=== PATIENT | female | born 1930 | race Asian ===

== ENCOUNTER 2019-12-06 16:43 | Inpatient (IN) | payer OTHER, MEDICAID ==
[~2019-12-06] VITALS: Ht 162.6 cm; Wt 49.4 kg
[2019-12-06 16:45] VITALS: BP 160/84
[2019-12-06 17:50] LABS: HEMATOCRIT 36.2 % (37.0-47.0); HEMOGLOBIN 11.6 G/DL (12.0-16.0); MEAN CORPUSCULAR VOLUME 95 FL (80-99); PLATELET COUNT 183 K/UL (150-450); WHITE BLOOD COUNT 11.6 K/UL (4.8-10.8)
--- NOTE | 2019-12-06 18:08 | Emergency Room Report ---
History of Present Illness General Chief Complaint: Fever Source: Medical Record Present Illness HPI Patient presents by paramedics for reports of fever Patient was brought in by paramedics It was reported the patient was picked up from a business office There was no reports of vomiting or diarrhea patient herself has underlying dementia History from the patient is unable to be obtained we are attempting to Discussed regarding patient's case with family Unknown regarding cough patient was documented to have a fever here Allergies: Coded Allergies: PENICILLINS (Unverified Allergy, Unknown, 12/06/19) COVID-19 Screening Contact w/high risk pt: No Recent Travel to affected area: No Experienced COVID-19 symptoms?: Yes COVID-19 symptoms experienced: Fever (T>100.4F or >38C) COVID-19 Testing performed RATE CLERK: No Patient History Past Medical History: see triage record Reviewed Nursing Documentation: PMH: Agreed; PSxH: Agreed Review of Systems All Other Systems: negative except mentioned in HPI Physical Exam Vital Signs Date Time Temp Pulse Resp B/P (MAP) Pulse Ox O2 Delivery O2 Flow Rate FiO2 12/06/19 16:38 100.2 100 22 160/84 (109) 88 Room Air Sp02 EP Interpretation: reviewed, abnormal - 88% which is a low interpretation. On 2 L the patient is saturating at 98% which is normal General Appearance: well appearing, no apparent distress Head: normocephalic, atraumatic Eyes: bilateral eye PERRL, bilateral eye EOMI ENT: EOM grossly intact Neck: supple Respiratory: no retraction, no accessory muscle use, crackles - Both lower lobes Cardiovascular #1: regular rate, rhythm Gastrointestinal: non tender, soft Genitourinary: no CVA tenderness Musculoskeletal: normal inspection Neurologic: alert Skin: no rash Lymphatic: no adenopathy Medical Decision Making Diagnostic Impression: Primary Impression: Fever Additional Impressions: Suspected COVID-19 virus infection UTI (urinary tract infection) ER Course Patient is a fairly complex patient with multiple differential to consideration including but not limited to cardiac cardiopulmonary , infectious such as covid- 19 , UTI , abdominal process and vascular emergencies Entertained Patient's urine sample does show significant bacteria x-ray also shows bilateral bibasilar infiltrates Patient provided with IV hydration and antibiotics and requires further inpatient care Labs Test 12/06/19 17:12 12/06/19 17:31 White Blood Count 11.6 K/UL (4.8-10.8) Red Blood Count 3.80 M/UL (4.20-5.40) Hemoglobin 11.6 G/DL (12.0-16.0) Hematocrit 36.2 % (37.0-47.0) Mean Corpuscular Volume 95 FL (80-99) Mean Corpuscular Hemoglobin 30.4 PG (27.0-31.0) Mean Corpuscular Hemoglobin Concent 32.0 G/DL (32.0-36.0) Red Cell Distribution Width 14.0 % (11.6-14.8) Platelet Count 183 K/UL (150-450) Mean Platelet Volume 7.9 FL (6.5-10.1) Neutrophils (%) (Auto) % (45.0-75.0) Lymphocytes (%) (Auto) % (20.0-45.0) Monocytes (%) (Auto) % (1.0-10.0) Eosinophils (%) (Auto) % (0.0-3.0) Basophils (%) (Auto) % (0.0-2.0) Differential Total Cells Counted 100 Neutrophils % (Manual) 88 % (45-75) Lymphocytes % (Manual) 9 % (20-45) Monocytes % (Manual) 2 % (1-10) Eosinophils % (Manual) 1 % (0-3) Basophils % (Manual) 0 % (0-2) Band Neutrophils 0 % (0-8) Platelet Estimate Adequate Platelet Morphology Normal Red Blood Cell Morphology Normal Sodium Level 134 MMOL/L (136-145) Potassium Level 4.1 MMOL/L (3.5-5.1) Chloride Level 98 MMOL/L (98-107) Carbon Dioxide Level 24 MMOL/L (21-32) Anion Gap 12 mmol/L (5-15) Blood Urea Nitrogen 30 mg/dL (7-18) Creatinine 1.5 MG/DL (0.55-1.30) Estimat Glomerular Filtration Rate 32.7 mL/min (>60) Glucose Level 138 MG/DL (74-106) Lactic Acid Level 1.00 mmol/L (0.4-2.0) Calcium Level 8.8 MG/DL (8.5-10.1) Total Bilirubin 0.7 MG/DL (0.2-1.0) Aspartate Amino Transf (AST/SGOT) 17 U/L (15-37) Alanine Aminotransferase (ALT/SGPT) 9 U/L (12-78) Alkaline Phosphatase 79 U/L (46-116) Total Creatine Kinase 58 U/L (26-308) Creatine Kinase MB 0.7 NG/ML (0.0-3.6) Creatine Kinase MB Relative Index 1.2 Troponin I 0.004 ng/mL (0.000-0.056) Pro-B-Type Natriuretic Peptide 750 pg/mL (0-125) Total Protein 7.0 G/DL (6.4-8.2) Albumin 3.0 G/DL (3.4-5.0) Globulin 4.0 g/dL Albumin/Globulin Ratio 0.8 (1.0-2.7) Lipase 88 U/L (73-393) Urine Color Pale yellow Urine Appearance Slightly cloudy Urine pH 6 (4.5-8.0) Urine Specific [place] 1.010 (1.005-1.035) Urine Protein 3+ (NEGATIVE) Urine Glucose (UA) Negative (NEGATIVE) Urine Ketones Negative (NEGATIVE) Urine Blood 3+ (NEGATIVE) Urine Nitrite Negative (NEGATIVE) Urine Bilirubin Negative (NEGATIVE) Urine Urobilinogen Normal MG/DL (0.0-1.0) Urine Leukocyte Esterase 3+ (NEGATIVE) Urine RBC 30-40 /HPF (0 - 2) Urine WBC 60-80 /HPF (0 - 2) Urine Squamous Epithelial Cells Moderate /LPF (NONE/OCC) Urine Bacteria Many /HPF (NONE) Rhythm Strip Diag. Results EP Interpretation: yes Rate: 77 Rhythm: NSR, no PVC's, no ectopy Chest X-Ray Diagnostic Results Chest X-Ray Diagnostic Results : Chest X-Ray Ordered: Yes # of Views/Limited/Complete: 1 View Indication: Chest Pain EP Interpretation: Yes Interpretation: no effusion, no pneumothorax, other - Bilateral bibasilar atelectasis Impression: Other - Bilateral bibasilar atelectasis infiltrate Electronically Signed by: Melissa Yoon DO Last Vital Signs Date Time Temp Pulse Resp B/P (MAP) Pulse Ox O2 Delivery O2 Flow Rate FiO2 12/06/19 16:45 100.2 100 22 160/84 88 Room Air Status: improved Disposition: ADMITTED INPATIENT Condition: Serious Referrals: NON PHYSICIAN (PCP) Melissa Yoon DO Dec 06, 2019 18:08
[2019-12-06 18:21] LABS: ANION GAP 12 mmol/L (5-15); BLOOD UREA NITROGEN 30 mg/dL (7-18); CALCIUM 8.8 MG/DL (8.5-10.1); CARBON DIOXIDE 24 MMOL/L (21-32); CHLORIDE 98 MMOL/L (98-107); CREATININE 1.5 MG/DL (0.55-1.30); POTASSIUM 4.1 MMOL/L (3.5-5.1); SODIUM 134 MMOL/L (136-145)
[2019-12-06 18:34] LABS: ALANINE AMINOTRANSFERASE 9 U/L (12-78); ALBUMIN/GLOBULIN RATIO 0.8 (1.0-2.7); ALKALINE PHOSPHATASE 79 U/L (46-116); ASPARTATE AMINO TRANSFERASE 17 U/L (15-37); BILIRUBIN,TOTAL 0.7 MG/DL (0.2-1.0); CKMB 0.7 NG/ML (0.0-3.6); CREATINE KINASE 58 U/L (26-308)
[2019-12-06 18:47] LABS: APPEARANCE,URINE SLIGHTLY CLOUDY; BILIRUBIN, URINE NEGATIVE (NEGATIVE); COLOR,URINE PALE YELLOW; GLUCOSE, URINE (UA) NEGATIVE (NEGATIVE); KETONES,URINE NEGATIVE (NEGATIVE); LEUKOCYTE ESTERASE ,URINE 3+ (NEGATIVE); NITRITE,URINE NEGATIVE (NEGATIVE); PH,URINE 6 (4.5-8.0); PROTEIN,URINE 3+ (NEGATIVE); UROBILINOGEN,URINE NORMAL MG/DL (0.0-1.0)
[2019-12-06] MEDS ORDERED: DOCUSATE SODIU100 MG ORAL (19:14)
[2019-12-06] MEDS ORDERED: HYDROXYZINE HCL10 M1 PO (19:14)
[2019-12-06] MEDS ORDERED: IBUPROFEN200 MG ORAL (19:14)
[2019-12-06] MEDS ORDERED: LYRICA75 M1 ORAL (19:14)
[2019-12-06] MEDS ORDERED: DONEPEZIL HCL5 M2 ORAL (19:14)
[2019-12-06] MEDS ORDERED: ALPRAZOLAM1 MG ORAL (19:14)
[2019-12-06] MEDS ORDERED: LOSARTAN POTASS25 MG ORAL (19:14)
[2019-12-06 19:45] VITALS: BP 130/61
[2019-12-06 21:00] VITALS: BP 144/67
[2019-12-06] MEDS: Aztreonam Inj 0.5 GM in D5W 55 ML IVPB SCH (23:18)
[2019-12-07] VITALS: BP 166/83
[2019-12-07 04:00] VITALS: BP 86/83
[2019-12-07] MEDS: Aztreonam Inj 0.5 GM in D5W 55 ML IVPB SCH ×3 (05:46→21:27)
[2019-12-07 06:26] LABS: HEMATOCRIT 36.6 % (37.0-47.0); HEMOGLOBIN 11.5 G/DL (12.0-16.0); MEAN CORPUSCULAR VOLUME 97 FL (80-99); PLATELET COUNT 191 K/UL (150-450); RED BLOOD COUNT 3.78 M/UL (4.20-5.40); RED CELL DISTRIBUTION WIDTH 13.3 % (11.6-14.8); WHITE BLOOD COUNT 13.2 K/UL (4.8-10.8)
[2019-12-07 07:02] LABS: ALANINE AMINOTRANSFERASE 7 U/L (12-78); ALBUMIN/GLOBULIN RATIO 0.7 (1.0-2.7); ALKALINE PHOSPHATASE 71 U/L (46-116); ANION GAP 9 mmol/L (5-15); ASPARTATE AMINO TRANSFERASE 22 U/L (15-37); BILIRUBIN,TOTAL 0.8 MG/DL (0.2-1.0); BLOOD UREA NITROGEN 32 mg/dL (7-18); CALCIUM 8.6 MG/DL (8.5-10.1); CARBON DIOXIDE 27 MMOL/L (21-32); CHLORIDE 100 MMOL/L (98-107); CREATININE 1.7 MG/DL (0.55-1.30); SODIUM 136 MMOL/L (136-145)
[2019-12-07 08:00] VITALS: BP 154/86
[2019-12-07] MEDS: Donepezil 5mg Tab ORAL SCH (08:44)
[2019-12-07] MEDS: Docusate 250mg cap ORAL SCH ×3 (08:44→19:08)
--- NOTE | 2019-12-07 10:21 | Diagnostic Imaging Report ---
Procedure: XRAY Chest 1v Reason for study: Chest pain. Comparison films: None. FINDINGS: A single one view chest is obtained. Vascularity is normal. There are bibasilar mild infiltrates. Cardiomegaly and tortuous aorta noted . Bilateral small effusions demonstrated. The bony thorax appear unremarkable. IMPRESSION: Bibasilar infiltrates and small effusions.
[2019-12-07 12:00] VITALS: BP 142/81
--- NOTE | 2019-12-07 13:15 | Consultation ---
DATE OF CONSULTATION: 12/07/2019 PULMONARY CONSULTATION CONSULTING PHYSICIAN: Duc Beltran MD. HISTORY OF PRESENT ILLNESS: This is an 89-year-old female who was brought to the hospital with fever. The patient was brought in by paramedics. The patient has dementia and is unable to provide any further history. The patient was reported having cough and was also febrile on arrival to the emergency room. In the last 12 hours here, T-maxis 99.8. She was transiently hypotensive, but currently is normotensive. Her laboratory testing has shown leukocytosis with anemia, left shift and a creatinine of 1.7. Her urinalysis shows pyuria as well. PAST MEDICAL HISTORY: Notable for dementia. PAST SURGICAL HISTORY: Not known. REVIEW OF SYSTEMS: Unreliable. PHYSICAL EXAMINATION: GENERAL: Reveals an elderly female. VITAL SIGNS: Blood pressure 160/80, heart rate is 100, respirations are 18. O2 saturation 98% on 2 liters oxygen. T-max 100.2 noted. HEENT: Unremarkable. CHEST: Shows clear breath sounds bilaterally. ABDOMEN: Soft. EXTREMITIES: There is no edema. LABORATORY DATA: Lab testing discussed above. DIAGNOSTIC STUDIES: X-ray chest per report shows bilaterally with some atelectatic changes in the right base and a suspicion of diaphragmatic plaques. IMPRESSION: 1. UTI. 2. Fever. 3. Abnormal chest x-ray. DISCUSSION: Admit to the hospital. Broad-spectrum antibiotics. IV fluid hydration. Await COVID-19 serology. We will follow carefully. Duc Beltran M.D. DR: ANA JOB#: [id number] CC:
[2019-12-07 16:00] VITALS: BP 138/79
[2019-12-07] MEDS: ALPRAZolam 0.5mg tab ORAL SCH (19:08)
[2019-12-07 20:00] VITALS: BP 150/74
[2019-12-07] MEDS: Lyrica 75mg cap ORAL SCH (21:26)
[2019-12-07] MEDS: Losartan 25mg tab ORAL SCH (21:27)
--- NOTE | 2019-12-07 23:15 | Consultation ---
DATE OF CONSULTATION: 12/07/2019 INFECTIOUS DISEASE CONSULTATION CONSULTING PHYSICIAN: Sanju Miranda MD. PRIMARY ATTENDING: Melissa Briscoe MD. REASON FOR CONSULTATION: UTI. HISTORY OF PRESENT ILLNESS: This is an 89-year-old patient female admitted yesterday from home complaining of low-grade fever with temperature of 100.2 in ER, also has borderline leukocytosis with WBC count of 11.6 that increased today to 13.2. The patient has no complaints. She has also dementia and hypertension. ALLERGIES: To penicillin. MEDICATIONS: Getting dose of Levaquin in ER, getting Cozaar, Lyrica, alprazolam, Colace, Aricept, ibuprofen, hydroxyzine, and Azactam. SOCIAL HISTORY: . [place] in origin. No history of alcohol, drug abuse or smoking. REVIEW OF SYSTEMS: The patient has no complaints. PHYSICAL EXAMINATION: VITAL SIGNS: Temperature 97.7, pulse 86 and blood pressure is 142/81. GENERAL APPEARANCE: In no acute distress. HEAD AND NECK: [place] conjunctivae. HEART: Normal rate. LUNGS: Clear. ABDOMEN: Soft, nontender. EXTREMITIES: No edema. NEUROLOGIC: Awake and alert. LABORATORY DATA: WBC 13.2, hemoglobin 11.5, hematocrit 36.6, and platelets 191. Sodium 136, potassium 4, chloride 100, bicarb 27, BUN 32, creatinine 1.7, glucose is 126. UA showed WBC of 68, RBC of 30 to 40, leukocyte esterase 2+, protein 2+. Chest x-ray showed right basilar infiltrate and effusion. IMPRESSION: 1. Pyuria, likely UTI. 2. Abnormal chest x-ray with infiltrate, COVID-19 test was negative. 3. Penicillin allergy history. 4. Acute renal failure. 5. Hypertension. RECOMMENDATION: Continue Azactam. Follow up the cultures. At the end of my exam, I thank Dr. Briscoe, for involving me in the care of this patient. Sanju Miranda M.D. DR: Cas JOB#: [id number] CC: JOSE A
[2019-12-08] VITALS: BP 158/88
--- NOTE | 2019-12-08 01:00 | History and Physical Report ---
DATE OF ADMISSION: 12/06/2019 HISTORY OF PRESENT ILLNESS: The patient has fever. She is admitted also to rule out COVID. The patient is somewhat a poor historian. She speaks Polish. History is obtained via a Polish-speaking nurse. The patient has had fever, weakness, is admitted to rule out COVID and also dizzy for the past 2 to 3 days. The patient denies shortness of breath. Denies nausea, vomiting, or diarrhea. Denies cough. Denies shortness of breath. PAST MEDICAL HISTORY: Organic brain syndrome, hypertension, , constipation, chronic pain syndrome, and anxiety. PAST SURGICAL HISTORY: Denies. FAMILY HISTORY: Noncontributory. SOCIAL HISTORY: Denies history of smoking. No history of alcohol or drugs. ALLERGIES: Penicillin. MEDICATIONS: Benazepril, docusate, Xanax, losartan, and Lyrica. FAMILY HISTORY: Noncontributory. REVIEW OF SYSTEMS: HEENT: Denies headaches. RESPIRATORY: Denies shortness of breath. Denies cough. CARDIOVASCULAR: Denies chest pain or orthopnea. GASTROINTESTINAL: Denies nausea, vomiting, or diarrhea. Feels weak. EXTREMITIES: Denies pain in lower extremities. Does have weakness. PHYSICAL EXAMINATION: VITAL SIGNS: Temperature is 97, pulse is 84, blood pressure 166/83. HEENT: PERRLA. NECK: Supple. LUNGS: Clear to auscultation. CARDIOVASCULAR: Regular rate and rhythm. No murmurs or extra sounds. GASTROINTESTINAL: Soft, nontender, nondistended. No hepatosplenomegaly. EXTREMITIES: No edema. Moves all four extremities. NEUROLOGIC: Sensory intact to light touch. Reflexes equal on both sides. Oriented to name only. LABORATORY DATA: WBC of 11.6, hemoglobin 11.6, platelets of 150. Sodium 134, potassium 4.1, BUN of 30, creatinine 1.5, glucose of 138. Troponin 0.004. ASSESSMENT AND PLAN: Sepsis and UTI. I have consulted Dr. Sanju Miranda and Dr. Duc Beltran to rule out COVID and antibiotics per Dr. Sanju Miranda. Melissa Briscoe M.D. DR: MESSI JOB#: [id number] CC:
[2019-12-08 04:00] VITALS: BP 152/76
[2019-12-08] MEDS: Aztreonam Inj 0.5 GM in D5W 55 ML IVPB SCH ×3 (05:41→21:27)
[2019-12-08 09:00] VITALS: BP 142/78
[2019-12-08] MEDS: Donepezil 5mg Tab ORAL SCH (09:55)
[2019-12-08] MEDS: Docusate 250mg cap ORAL SCH ×3 (09:55→17:32)
--- NOTE | 2019-12-08 10:12 | Pulmonology Progress Note ---
Subjective Interval Events: COVID 19 pcr negative Constitutional: Reports: no symptoms HEENT: Repors: no symptoms Respiratory: Reports: no symptoms Cardiovascular: Reports: no symptoms Gastrointestinal/Abdominal: Reports: no symptoms Allergies: Coded Allergies: PENICILLINS (Unverified Allergy, Unknown, 12/06/19) Objective Last 24 Hour Vital Signs Date Time Temp Pulse Resp B/P (MAP) Pulse Ox O2 Delivery O2 Flow Rate FiO2 12/08/19 09:00 98.4 83 20 142/78 (99) 96 12/08/19 04:00 98.2 87 21 152/76 (101) 95 12/08/19 00:00 98.6 99 21 158/88 (111) 96 12/07/19 21:27 150/74 12/07/19 21:00 Room Air 12/07/19 20:00 98.2 74 19 150/74 (99) 96 12/07/19 16:00 98.2 91 21 138/79 (98) 95 12/07/19 12:00 97.7 86 20 142/81 (101) 97 Intake and Output 12/07/19 12/08/19 19:00 07:00 Intake Total 855 ml 110 ml Balance 855 ml 110 ml Intake Oral 800 ml IV Total 55 ml 110 ml # Voids 4 3 # Bowel Movements 2 1 General Appearance: no acute distress HEENT: normocephalic Respiratory: chest wall non-tender, lungs clear Cardiovascular: normal peripheral pulses Abdomen: normal bowel sounds Microbiology Date/Time Source Procedure Growth Status 12/06/19 17:12 Blood Blood Culture - Preliminary NO GROWTH AFTER 24 HOURS Resulted 12/06/19 16:55 Blood Blood Culture - Preliminary NO GROWTH AFTER 24 HOURS Resulted 12/06/19 17:12 Nasopharynx Coronavirus COVID-19 PCR ([facility]) - Final Complete Current Medications Medications (Trade) Dose Ordered Sig/Corina Route PRN Reason Start Time Stop Time Status Last Admin Dose Admin Alprazolam (Xanax) 1 mg DAILY@1800 ORAL 12/07/19 18:00 12/14/19 17:59 12/07/19 19:08 Aztreonam 0.5 gm/ Dextrose 55 ml @ 110 mls/hr Q8HR IVPB 12/06/19 22:00 12/13/19 21:59 12/08/19 05:41 Docusate Sodium (Colace) 250 mg TID ORAL 12/07/19 09:00 01/06/20 08:59 12/08/19 09:55 Donepezil HCl (Aricept) 5 mg DAILY ORAL 12/07/19 09:00 01/06/20 08:59 12/08/19 09:55 Hydroxyzine HCl (Vistaril) 10 mg DAILY PRN ORAL Itching 12/06/19 22:45 01/05/20 22:44 Ibuprofen (Advil) 600 mg Q8HR ORAL 12/07/19 06:00 01/06/20 05:59 12/08/19 05:34 Losartan Potassium (Cozaar) 100 mg QHS ORAL 12/07/19 21:00 01/06/20 20:59 12/07/19 21:27 Pregabalin (Lyrica) 75 mg QHS ORAL 12/07/19 21:00 01/06/20 20:59 12/07/19 21:26 Assessment/Plan Assessment/Plan IMPRESSION: 1. UTI. 2. Fever. 3. Abnormal chest x-ray. DISCUSSION: Broad-spectrum antibiotics. IV fluid hydration. Has negative COVID-19 pcr I will follow carefully. Farhan Lozano Omar Syed MD Dec 08, 2019 10:12
[2019-12-08 12:00] VITALS: BP 137/71
--- NOTE | 2019-12-08 12:59 | Infectious Diseases Prog Note ---
Assessment/Plan Assessment/Plan IMPRESSION: 1. Pyuria, likely UTI. 2. Abnormal chest x-ray with infiltrate, COVID-19 test was negative. 3. Penicillin allergy history. 4. Acute renal failure. 5. Hypertension. RECOMMENDATION: Continue Azactam. Follow up the cultures. Subjective ROS Limited/Unobtainable: Yes Constitutional: Reports: no symptoms Respiratory: Reports: no symptoms Gastrointestinal/Abdominal: Reports: no symptoms Genitourinary: Reports: no symptoms Allergies: Coded Allergies: PENICILLINS (Unverified Allergy, Unknown, 12/06/19) Objective Vital Signs Last 24 Hour Vital Signs Date Time Temp Pulse Resp B/P (MAP) Pulse Ox O2 Delivery O2 Flow Rate FiO2 12/08/19 12:00 98.3 87 19 137/71 (93) 97 12/08/19 09:00 Room Air 12/08/19 09:00 98.4 83 20 142/78 (99) 96 12/08/19 04:00 98.2 87 21 152/76 (101) 95 12/08/19 00:00 98.6 99 21 158/88 (111) 96 12/07/19 21:27 150/74 12/07/19 21:00 Room Air 12/07/19 20:00 98.2 74 19 150/74 (99) 96 12/07/19 16:00 98.2 91 21 138/79 (98) 95 Height (Feet): 5 Height (Inches): 4.00 Weight (Pounds): 109 HEENT: mucous membranes moist Respiratory/Chest: lungs clear Cardiovascular: normal rate Abdomen: soft, non tender Extremities: no edema Neurologic/Psychiatric: alert, responsive, other - ambulatory in room Microbiology Date/Time Source Procedure Growth Status 12/06/19 17:12 Blood Blood Culture - Preliminary NO GROWTH AFTER 24 HOURS Resulted 12/06/19 16:55 Blood Blood Culture - Preliminary NO GROWTH AFTER 24 HOURS Resulted 12/06/19 17:12 Nasopharynx Coronavirus COVID-19 PCR ([facility]) - Final Complete Current Medications Medications (Trade) Dose Ordered Sig/Corina Route PRN Reason Start Time Stop Time Status Last Admin Dose Admin Alprazolam (Xanax) 1 mg DAILY@1800 ORAL 12/07/19 18:00 12/14/19 17:59 12/07/19 19:08 Aztreonam 0.5 gm/ Dextrose 55 ml @ 110 mls/hr Q8HR IVPB 12/06/19 22:00 12/13/19 21:59 12/08/19 05:41 Docusate Sodium (Colace) 250 mg TID ORAL 12/07/19 09:00 01/06/20 08:59 12/08/19 12:52 Donepezil HCl (Aricept) 5 mg DAILY ORAL 12/07/19 09:00 01/06/20 08:59 12/08/19 09:55 Hydroxyzine HCl (Vistaril) 10 mg DAILY PRN ORAL Itching 12/06/19 22:45 01/05/20 22:44 Ibuprofen (Advil) 600 mg Q8HR ORAL 12/07/19 06:00 01/06/20 05:59 12/08/19 05:34 Losartan Potassium (Cozaar) 100 mg QHS ORAL 12/07/19 21:00 01/06/20 20:59 12/07/19 21:27 Pregabalin (Lyrica) 75 mg QHS ORAL 12/07/19 21:00 01/06/20 20:59 12/07/19 21:26 Sanju Miranda MD Dec 08, 2019 12:59
[2019-12-08 15:52] VITALS: BP 131/69
[2019-12-08] MEDS: ALPRAZolam 0.5mg tab ORAL SCH (18:28)
[2019-12-08 20:00] VITALS: BP 149/83
[2019-12-08] MEDS: Losartan 25mg tab ORAL SCH (20:37)
[2019-12-08] MEDS: Lyrica 75mg cap ORAL SCH (20:37)
--- NOTE | 2019-12-08 21:43 | General Progress Note ---
Assessment/Plan Problem List: (1) Fever ICD Codes: R50.9 - Fever, unspecified SNOMED: [id number] Status: progressing Assessment/Plan: afebrile ro covid sepsis r/o uti obs abx per id Subjective ROS Limited/Unobtainable: Yes Allergies: Coded Allergies: PENICILLINS (Unverified Allergy, Unknown, 12/06/19) Objective Last 24 Hour Vital Signs Date Time Temp Pulse Resp B/P (MAP) Pulse Ox O2 Delivery O2 Flow Rate FiO2 12/08/19 21:07 98.0 12/08/19 20:37 149/83 12/08/19 20:00 97.9 78 19 149/83 (105) 96 12/08/19 15:52 98.0 91 20 131/69 (89) 98 12/08/19 12:00 98.3 87 19 137/71 (93) 97 12/08/19 09:00 Room Air 12/08/19 09:00 98.4 83 20 142/78 (99) 96 12/08/19 04:00 98.2 87 21 152/76 (101) 95 12/08/19 00:00 98.6 99 21 158/88 (111) 96 Intake and Output 12/07/19 12/08/19 19:00 07:00 Intake Total 855 ml 110 ml Balance 855 ml 110 ml Intake Oral 800 ml IV Total 55 ml 110 ml # Voids 4 3 # Bowel Movements 2 1 Height (Feet): 5 Height (Inches): 4.00 Weight (Pounds): 109 Melissa Briscoe MD Dec 08, 2019 21:43
[2019-12-09] VITALS: BP 121/84
[2019-12-09 04:00] VITALS: BP 131/83
[2019-12-09 05:19] LABS: BASOPHILS % (AUTO) 1.2 % (0.0-2.0); EOSINOPHILS % (AUTO) 3.1 % (0.0-3.0); HEMATOCRIT 36.3 % (37.0-47.0); HEMOGLOBIN 11.6 G/DL (12.0-16.0); LYMPHOCYTES % (AUTO) 17.3 % (20.0-45.0); MEAN CORPUSCULAR VOLUME 95 FL (80-99); MONOCYTES % (AUTO) 10.2 % (1.0-10.0); NEUTROPHILS % (AUTO) 68.3 % (45.0-75.0); PLATELET COUNT 196 K/UL (150-450); RED BLOOD COUNT 3.81 M/UL (4.20-5.40); RED CELL DISTRIBUTION WIDTH 13.7 % (11.6-14.8); WHITE BLOOD COUNT 5.3 K/UL (4.8-10.8)
[2019-12-09] MEDS: Aztreonam Inj 0.5 GM in D5W 55 ML IVPB SCH (05:20)
[2019-12-09 08:00] VITALS: BP 154/68
[2019-12-09] MEDS: Donepezil 5mg Tab ORAL SCH (08:03)
[2019-12-09] MEDS: Docusate 250mg cap ORAL SCH ×2 (08:03→13:24)
--- NOTE | 2019-12-09 10:08 | Infectious Diseases Prog Note ---
Assessment/Plan Assessment/Plan IMPRESSION: 1. Pyuria, likely UTI. 2. Abnormal chest x-ray with infiltrate, COVID-19 test was negative. 3. Penicillin allergy history. 4. Acute renal failure. 5. Hypertension. RECOMMENDATION: Discontinue Azactam. Levaquin 750 mg X 1 agree with discharge Subjective ROS Limited/Unobtainable: Yes Constitutional: Reports: no symptoms Respiratory: Reports: no symptoms Gastrointestinal/Abdominal: Reports: no symptoms Genitourinary: Reports: no symptoms Allergies: Coded Allergies: PENICILLINS (Unverified Allergy, Unknown, 12/06/19) Objective Vital Signs Last 24 Hour Vital Signs Date Time Temp Pulse Resp B/P (MAP) Pulse Ox O2 Delivery O2 Flow Rate FiO2 12/09/19 08:00 97.3 77 17 154/68 (96) 95 12/09/19 05:54 98.3 12/09/19 04:00 98.3 80 20 131/83 (99) 96 12/09/19 00:00 97.6 76 19 121/84 (96) 96 12/08/19 21:07 98.0 12/08/19 21:00 Room Air 12/08/19 20:37 149/83 12/08/19 20:00 97.9 78 19 149/83 (105) 96 12/08/19 15:52 98.0 91 20 131/69 (89) 98 12/08/19 12:00 98.3 87 19 137/71 (93) 97 General Appearance: no acute distress HEENT: mucous membranes moist Respiratory/Chest: lungs clear Cardiovascular: normal rate Abdomen: soft, non tender Extremities: no edema Neurologic/Psychiatric: alert, oriented x 3, responsive Microbiology Date/Time Source Procedure Growth Status 12/06/19 17:12 Blood Blood Culture - Preliminary NO GROWTH AFTER 48 HOURS Resulted 12/06/19 16:55 Blood Blood Culture - Preliminary NO GROWTH AFTER 48 HOURS Resulted 12/06/19 17:12 Nasopharynx Coronavirus COVID-19 PCR ([facility]) - Final Complete Laboratory Tests Test 12/09/19 05:05 White Blood Count 5.3 K/UL (4.8-10.8) Red Blood Count 3.81 M/UL (4.20-5.40) L Hemoglobin 11.6 G/DL (12.0-16.0) L Hematocrit 36.3 % (37.0-47.0) L Mean Corpuscular Volume 95 FL (80-99) Mean Corpuscular Hemoglobin 30.3 PG (27.0-31.0) Mean Corpuscular Hemoglobin Concent 31.8 G/DL (32.0-36.0) L Red Cell Distribution Width 13.7 % (11.6-14.8) Platelet Count 196 K/UL (150-450) Mean Platelet Volume 8.5 FL (6.5-10.1) Neutrophils (%) (Auto) 68.3 % (45.0-75.0) Lymphocytes (%) (Auto) 17.3 % (20.0-45.0) L Monocytes (%) (Auto) 10.2 % (1.0-10.0) H Eosinophils (%) (Auto) 3.1 % (0.0-3.0) H Basophils (%) (Auto) 1.2 % (0.0-2.0) Current Medications Medications (Trade) Dose Ordered Sig/Corina Route PRN Reason Start Time Stop Time Status Last Admin Dose Admin Alprazolam (Xanax) 1 mg DAILY@1800 ORAL 12/07/19 18:00 12/14/19 17:59 12/08/19 18:28 Aztreonam 0.5 gm/ Dextrose 55 ml @ 110 mls/hr Q8HR IVPB 12/06/19 22:00 12/13/19 21:59 12/09/19 05:20 Docusate Sodium (Colace) 250 mg TID ORAL 12/07/19 09:00 01/06/20 08:59 12/09/19 08:03 Donepezil HCl (Aricept) 5 mg DAILY ORAL 12/07/19 09:00 01/06/20 08:59 12/09/19 08:03 Hydroxyzine HCl (Vistaril) 10 mg DAILY PRN ORAL Itching 12/06/19 22:45 01/05/20 22:44 Ibuprofen (Advil) 600 mg Q8HR ORAL 12/07/19 06:00 01/06/20 05:59 12/09/19 05:24 Losartan Potassium (Cozaar) 100 mg QHS ORAL 12/07/19 21:00 01/06/20 20:59 12/08/19 20:37 Pregabalin (Lyrica) 75 mg QHS ORAL 12/07/19 21:00 01/06/20 20:59 12/08/19 20:37 Sanju Miranda MD Dec 09, 2019 10:08
[2019-12-09] MEDS ORDERED: Levofloxacin 750mg tab ORAL SCH (10:15)
--- NOTE | 2019-12-09 10:25 | Pulmonology Progress Note ---
Subjective ROS Limited/Unobtainable: Yes Interval Events: COVID 19 pcr negative Constitutional: Reports: no symptoms HEENT: Repors: no symptoms Respiratory: Reports: no symptoms Cardiovascular: Reports: no symptoms Gastrointestinal/Abdominal: Reports: no symptoms Allergies: Coded Allergies: PENICILLINS (Unverified Allergy, Unknown, 12/06/19) Objective Last 24 Hour Vital Signs Date Time Temp Pulse Resp B/P (MAP) Pulse Ox O2 Delivery O2 Flow Rate FiO2 12/09/19 08:00 97.3 77 17 154/68 (96) 95 12/09/19 05:54 98.3 12/09/19 04:00 98.3 80 20 131/83 (99) 96 12/09/19 00:00 97.6 76 19 121/84 (96) 96 12/08/19 21:07 98.0 12/08/19 21:00 Room Air 12/08/19 20:37 149/83 12/08/19 20:00 97.9 78 19 149/83 (105) 96 12/08/19 15:52 98.0 91 20 131/69 (89) 98 12/08/19 12:00 98.3 87 19 137/71 (93) 97 Intake and Output 12/08/19 12/09/19 19:00 07:00 Intake Total 470 ml 765 ml Balance 470 ml 765 ml Intake Oral 360 ml 600 ml IV Total 110 ml 165 ml # Voids 3 General Appearance: no acute distress HEENT: normocephalic Respiratory: chest wall non-tender, lungs clear Cardiovascular: normal peripheral pulses Abdomen: normal bowel sounds Microbiology Date/Time Source Procedure Growth Status 12/06/19 17:12 Blood Blood Culture - Preliminary NO GROWTH AFTER 48 HOURS Resulted 12/06/19 16:55 Blood Blood Culture - Preliminary NO GROWTH AFTER 48 HOURS Resulted 12/06/19 17:12 Nasopharynx Coronavirus COVID-19 PCR ([facility]) - Final Complete Laboratory Tests 12/09/19 05:05: White Blood Count 5.3, Red Blood Count 3.81L, Hemoglobin 11.6L, Hematocrit 36.3L , Mean Corpuscular Volume 95, Mean Corpuscular Hemoglobin 30.3, Mean Corpuscular Hemoglobin Concent 31.8L, Red Cell Distribution Width 13.7, Platelet Count 196, Mean Platelet Volume 8.5, Neutrophils (%) (Auto) 68.3, Lymphocytes (%) (Auto) 17.3L, Monocytes (%) (Auto) 10.2H, Eosinophils (%) (Auto ) 3.1H, Basophils (%) (Auto) 1.2 Current Medications Medications (Trade) Dose Ordered Sig/Corina Route PRN Reason Start Time Stop Time Status Last Admin Dose Admin Alprazolam (Xanax) 1 mg DAILY@1800 ORAL 12/07/19 18:00 12/14/19 17:59 12/08/19 18:28 Docusate Sodium (Colace) 250 mg TID ORAL 12/07/19 09:00 01/06/20 08:59 12/09/19 08:03 Donepezil HCl (Aricept) 5 mg DAILY ORAL 12/07/19 09:00 01/06/20 08:59 12/09/19 08:03 Hydroxyzine HCl (Vistaril) 10 mg DAILY PRN ORAL Itching 12/06/19 22:45 01/05/20 22:44 Ibuprofen (Advil) 600 mg Q8HR ORAL 12/07/19 06:00 01/06/20 05:59 12/09/19 05:24 Levofloxacin (Levaquin) 750 mg ONCE ORAL 12/09/19 10:15 12/09/19 12:00 Losartan Potassium (Cozaar) 100 mg QHS ORAL 12/07/19 21:00 01/06/20 20:59 12/08/19 20:37 Pregabalin (Lyrica) 75 mg QHS ORAL 12/07/19 21:00 01/06/20 20:59 12/08/19 20:37 Assessment/Plan Assessment/Plan IMPRESSION: 1. UTI. 2. Fever. 3. Abnormal chest x-ray. DISCUSSION: Broad-spectrum antibiotics. IV fluid hydration. Has negative COVID-19 pcr CXR shows small bilateral effusions I will follow carefully. Farhan Lozano Omar Syed MD Dec 09, 2019 10:25
[2019-12-09 12:00] VITALS: BP 160/71
[2019-12-09 12:16] VITALS: BP 159/85
[2019-12-09] MEDS ORDERED: Losartan 50mg tab ORAL SCH (21:00)
--- NOTE | 2019-12-12 09:47 | Discharge Summary ---
Discharge Summary Discharge Summary _ DATE OF ADMISSION: 12/06/2019 DATE OF DISCHARGE: 12/09/2019 DISCHARGED BY: Dr. Briscoe REASON FOR ADMISSION: 89 years old female was brought by paramedics due to fever. No reports of vomiting or diarrhea. No cough. No chest pain. Upon evaluation patient was febrile with temperature 100.2 , blood pressure 160/ 84 ,borderline tachycardiac with heart rate 100 ,respiratory rate 22 . Patient initially was hypoxic , saturating only 88% on room air. Laboratory work-up revealed leukocytosis , stable electrolytes, BUN 30, creatinine 1.5. Lactic acid 1.0. Stable LFT. Troponin negative. Urinalysis revealed +3 protein, +3 leukocyte esterase ,pyuria and many bacteria. EKG revealed sinus rhythm , no acute ischemic changes . Chest x-ray revealed bibasilar infiltrate and small effusion. In emergency department patient was swabbed for COVID-19. Patient started on empiric antibiotics and admitted for further management. CONSULTANTS: piece worker Dr. Beltran ID specialist Dr. Sanju Tyjamie [facility] COURSE: Patient admitted to medical surgical floor. Patient started on antibiotic as per ID specialist recommendation. Urine culture revealed no evidence of growth, but UA was geossly positive for UTI, SARS COV2 by PCR was not was not detected. Blood cultures were negative. Leukocytosis was present for additional day and then resolved. Fevers resolved in 1 day. Supplemental oxygen was on board to keep pulse oximetry above 92% . Pulse oximetry remained stable on room air. No signs of respiratory distress. Blood pressure was managed with angiotensin receptor mariah and remained stable. Supportive care provided. Renal parameters and electrolytes were closely monitored nephrotoxic's were avoided . Patient will need further evaluation for renal function as outpatient, possibly chronic kidney disease. Patient clinically stabilized and was ready for discharge. FINAL DIAGNOSES: Possible sepsis Pyuria, likely UTI Suspected COVID-19- ruled out Renal failure Proteinuria Hypertension Fevers Abnormal chest x-ray DISCHARGE MEDICATIONS: See Medication Reconciliation list. DISCHARGE INSTRUCTIONS: Patient was discharged home. Outpatient follow-up with a primary care provider in 1 week. I have been assigned to dictate discharge summary for this account. I was not involved in the patient's management. Iman Mancia NP Dec 12, 2019 09:47
== END 2019-12-09 15:04 | disposition home or self-care (01) | DRG 690 ==
LOC: EDBD 16:43 → EMR 17:10 → 4E 18:50 → EDBEDREQ 19:09
DX: N39.0 Urinary tract infection, site not specified (principal); N17.9 Acute kidney failure, unspecified; Z88.0 Allergy status to penicillin; F09 Unspecified mental disorder due to known physiological condition; I10 Essential (primary) hypertension
CPT/HCPCS: 36415; 71045; 80053; 81003; 82550; 82553; 83605; 83690; 83880; 84484; 85007; 85025; 87040; 87086; 93005; 96365; 99285

== ENCOUNTER 2020-04-14 16:53 | Inpatient (IN) | payer OTHER, MEDICAID ==
[~2020-04-14] VITALS: Ht 152.4 cm; Wt 44.5 kg
[~2020-04-14 16:53] MED LIST: ALPRAZOLAM1 MG ORAL; DOCUSATE SODIU100 MG ORAL; DONEPEZIL HCL5 M2 ORAL; HYDROXYZINE HCL10 M1 PO; IBUPROFEN200 MG ORAL; LOSARTAN POTASS25 MG ORAL; LYRICA75 M1 ORAL
[2020-04-14] MEDS ORDERED: AUGMENTIN125 MG/52 ORAL (16:56)
[2020-04-14] MEDS ORDERED: FLAGYL250 MG ORAL (16:56)
[2020-04-14 17:00] VITALS: BP 238/85
[2020-04-14] MEDS ORDERED: Enalaprilat 2.5mg/2ml Inj IV ONE (17:15)
--- NOTE | 2020-04-14 17:43 | Diagnostic Imaging Report ---
EXAM: CT Head Without Intravenous Contrast CLINICAL HISTORY: H/A TECHNIQUE: Axial computed tomography images of the head/brain without intravenous contrast. CTDI is 53.4 mGy and DLP is 989.9 mGy-cm. One or more of the following dose reduction techniques were used: automated exposure control, adjustment of the mA and/or kV according to patient size, use of iterative reconstruction technique. COMPARISON: No relevant prior studies available. FINDINGS: Brain: No acute intracranial hemorrhage or cortical ischemia. Chronic small vessel ischemic changes. Ventricles: Unremarkable. Bones/joints: Unremarkable. No acute fracture. Soft tissues: Unremarkable. Sinuses: Unremarkable as visualized. Mastoid air cells: Unremarkable as visualized. IMPRESSION: No acute intracranial hemorrhage or skull fracture.
--- NOTE | 2020-04-14 18:05 | Emergency Room Report ---
History of Present Illness General Chief Complaint: General Complaint Source: Patient Present Illness HPI 89-year-old female presents for evaluation. Brought in by EMS from home. Stated that her blood pressure was high. Systolic greater than 200. Patient told EMS that she felt like she was going to . Denies any headache. Denies any chest pain or shortness of breath. Daughter states that patient was having increased urinary frequency today and was seen by the PMD who prescribed her some antibiotics for UTI. States that since then she appeared confused. States she was admitted here previously for similar episode. No other aggravating relieving factors. 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: No Patient History Past Medical History: HTN Past Surgical History: none Pertinent Family History: none Social History: Denies: smoking, alcohol use, drug use Last Menstrual Period: na Now: No Immunizations: UTD Reviewed Nursing Documentation: PMH: Agreed; PSxH: Agreed Nursing Documentation-PMH Past Medical History: No History, Except For Hx Hypertension: Yes Hx Dementia: Yes Review of Systems All Other Systems: negative except mentioned in HPI Physical Exam Vital Signs Date Time Temp Pulse Resp B/P (MAP) Pulse Ox O2 Delivery O2 Flow Rate FiO2 04/14/20 16:53 98.4 81 18 237/118 (157) 98 Room Air Sp02 EP Interpretation: reviewed, normal General Appearance: no apparent distress, alert, GCS 15, non-toxic Head: normocephalic, atraumatic Eyes: bilateral eye normal inspection, bilateral eye PERRL ENT: hearing grossly normal, normal pharynx, no angioedema, normal voice Neck: full range of motion, supple/symm/no masses Respiratory: chest non-tender, lungs clear, normal breath sounds, speaking full sentences Cardiovascular #1: regular rate, rhythm, no edema Cardiovascular #2: 2+ carotid (R), 2+ carotid (L), 2+ radial (R), 2+ radial (L), 2+ dorsalis pedis (R), 2+ dorsalis pedis (L) Gastrointestinal: normal bowel sounds, non tender, soft, non-distended, no guarding, no rebound Rectal: deferred Genitourinary: normal inspection, no CVA tenderness Musculoskeletal: back normal, normal range of motion, gait/station normal, non- tender Neurologic: alert, motor strength/tone normal, oriented x3, sensory intact, responsive, speech normal Psychiatric: judgement/insight normal, memory normal, mood/affect normal, no suicidal/homicidal ideation Reflexes: 3+ bicep (R), 3+ bicep (L), 3+ tricep (R), 3+ tricep (L), 3+ knee (R), 3+ knee (L) Lymphatic: no adenopathy Medical Decision Making Diagnostic Impression: Primary Impression: Hypertensive urgency EKG Diagnostic Results Troponin ordered: Yes Rate: normal Rhythm: NSR ST Segments: no acute changes Rhythm Strip Diag. Results EP Interpretation: yes Rhythm: NSR, no PVC's, no ectopy Chest X-Ray Diagnostic Results Chest X-Ray Diagnostic Results : Chest X-Ray Ordered: Yes # of Views/Limited/Complete: 1 View Indication: Other EP Interpretation: Yes Interpretation: no consolidation, no pneumothorax, other - bilateral effusion Impression: Other - Pleural effusion Electronically Signed by: Electronically signed by Tone Yanes MD CT/MRI/US Diagnostic Results CT/MRI/US Diagnostic Results : Imaging Test Ordered: CT Head Impression Procedure: CT Head no Contrast EXAM: CT Head Without Intravenous Contrast CLINICAL HISTORY: H/A TECHNIQUE: Axial computed tomography images of the head/brain without intravenous contrast. CTDI is 53.4 mGy and DLP is 989.9 mGy-cm. One or more of the following dose reduction techniques were used: automated exposure control, adjustment of the mA and/or kV according to patient size, use of iterative reconstruction technique. COMPARISON: No relevant prior studies available. FINDINGS: Brain: No acute intracranial hemorrhage or cortical ischemia. Chronic small vessel ischemic changes. Ventricles: Unremarkable. Bones/joints: Unremarkable. No acute fracture. Soft tissues: Unremarkable. Sinuses: Unremarkable as visualized. Mastoid air cells: Unremarkable as visualized. IMPRESSION: No acute intracranial hemorrhage or skull fracture. Last Vital Signs Date Time Temp Pulse Resp B/P (MAP) Pulse Ox O2 Delivery O2 Flow Rate FiO2 04/14/20 17:21 237/118 04/14/20 16:53 98.4 81 18 98 Room Air Status: improved Disposition: ADMITTED INPATIENT Condition: Serious Referrals: NON PHYSICIAN (PCP) Tone Yanes MD Apr 14, 2020 18:05
[2020-04-14 18:09] LABS: APPEARANCE,URINE CLEAR; BILIRUBIN, URINE NEGATIVE (NEGATIVE); COLOR,URINE PALE YELLOW; GLUCOSE, URINE (UA) NEGATIVE (NEGATIVE); KETONES,URINE 1+ (NEGATIVE); LEUKOCYTE ESTERASE ,URINE NEGATIVE (NEGATIVE); NITRITE,URINE NEGATIVE (NEGATIVE); PH,URINE 8 (4.5-8.0); PROTEIN,URINE 3+ (NEGATIVE); UROBILINOGEN,URINE NORMAL MG/DL (0.0-1.0)
[2020-04-14 18:13] LABS: ANION GAP 8 mmol/L (5-15); BLOOD UREA NITROGEN 19 mg/dL (7-18); CALCIUM 9.2 MG/DL (8.5-10.1); CARBON DIOXIDE 26 MMOL/L (21-32); CHLORIDE 93 MMOL/L (98-107); CREATININE 1.1 MG/DL (0.55-1.30); POTASSIUM 3.8 MMOL/L (3.5-5.1); SODIUM 127 MMOL/L (136-145)
--- NOTE | 2020-04-14 18:16 | Diagnostic Imaging Report ---
EXAM: XR Chest, 1 View CLINICAL HISTORY: CP TECHNIQUE: Frontal view of the chest. COMPARISON: 12/06/2019. FINDINGS: Lungs: Left basilar mild atelectasis/infiltrates. Pleural space: Possible small left pleural effusion. No pneumothorax. Heart: Unremarkable. No cardiomegaly. Mediastinum: Unremarkable. Bones/joints: Unremarkable. IMPRESSION: Left basilar mild atelectasis/infiltrates.
[2020-04-14 18:24] LABS: ALANINE AMINOTRANSFERASE < 6 U/L (12-78); ALBUMIN 3.6 G/DL (3.4-5.0); ALBUMIN/GLOBULIN RATIO 0.9 (1.0-2.7); ALKALINE PHOSPHATASE 97 U/L (46-116); ASPARTATE AMINO TRANSFERASE 18 U/L (15-37); BILIRUBIN,TOTAL 0.5 MG/DL (0.2-1.0)
[2020-04-14 18:25] LABS: EOSINOPHILS % (AUTO) 1.9 % (0.0-3.0); HEMATOCRIT 37.2 % (37.0-47.0); HEMOGLOBIN 12.4 G/DL (12.0-16.0); LYMPHOCYTES % (AUTO) 10.3 % (20.0-45.0); MEAN CORPUSCULAR VOLUME 90 FL (80-99); MONOCYTES % (AUTO) 1.6 % (1.0-10.0); NEUTROPHILS % (AUTO) 85.3 % (45.0-75.0); PLATELET COUNT 216 K/UL (150-450); RED BLOOD COUNT 4.11 M/UL (4.20-5.40); RED CELL DISTRIBUTION WIDTH 13.9 % (11.6-14.8); WHITE BLOOD COUNT 8.5 K/UL (4.8-10.8)
[2020-04-14 18:40] VITALS: BP 228/91
--- NOTE | 2020-04-14 18:56 | History and Physical ---
History of Present Illness General Reason for Hospitalization: General Complaint Present Illness HPI Mrs. Terry is a 89F with PMH of dementia and HTN who presents for HTN urgency. Patient with difficulty using hand ironer phone and mildly altered therefore most of history taken from ED and nurse. Patient was brought in by EMS from home after noticing SBP > 200. Patient denies headaches, chest pain, sob. Daughter noted patient to be slightly altered with increased urinary frequency in which there PMD prescribed her abx. No other information attainable at this moment. In the ED, patient SBP > 230's. CT head neg. Trops neg. She was given vasotec and labetolol. Admitted for HTN urgency PMH: Dementia, HTN Sx: unable to attain Fx: unable to attain Soc: unable to attain Allergies: Coded Allergies: PENICILLINS (Unverified Allergy, Unknown, 12/06/19) Uncoded Allergies: PENECILLIN (Allergy, Unknown, 04/14/20) COVID-19 Screening Contact w/high risk pt: No Recent Travel to affected area: No Experienced COVID-19 symptoms?: No Medication History Scheduled Alprazolam* (Xanax*), 1 MG ORAL DAILY, (Reported) Amoxicillin/Potassium Clav 125-31.25 Mg/5 Ml (Augmentin 125-31.25 Mg/5 Ml), Unknown Dose ORAL THREE TIMES A DAY, (Reported) Docusate Sodium* (Docusate Sodium*), 250 MG ORAL THREE TIMES A DAY, (Reported) Donepezil Hcl* (Donepezil Hcl*), 5 MG ORAL DAILY, (Reported) Ibuprofen (Ibuprofen*), 600 MG ORAL Q8HR, (Reported) Losartan Potassium* (Losartan Potassium*), 100 MG ORAL HS, (Reported) Metronidazole* (Flagyl*), Unknown Dose ORAL EVERY 8 HOURS, (Reported) Pregabalin* (Lyrica*), 75 MG ORAL HS, (Reported) Scheduled PRN Hydroxyzine Hcl (Hydroxyzine Hcl), 10 MG PO DAILY PRN for Itching, (Reported) Patient History Healthcare decision maker Resuscitation status Advanced Directive on File Review of Systems Constitutional: Denies: no symptoms, see HPI, chills, sweats, fever, malaise, weakness, other Eye: Denies: no symptoms, see HPI, eye pain, blurred vision, tearing, double vision, nose pain, nose congestion, acuity changes, discharge, other ENT: Denies: no symptoms, see HPI, ear pain, ear discharge, nose pain, nose congestion, throat pain, throat swelling, mouth pain, hearing loss, nasal discharge, other Respiratory: Denies: no symptoms, see HPI, cough, orthopnea, shortness of breath, stridor, wheezing, GILES, sputum, other Cardiovascular: Denies: no symptoms, see HPI, chest pain, edema, palpitations, syncope, PND, other Gastrointestinal: Denies: no symptoms, see HPI, abdominal pain, constipation, diarrhea, nausea, vomiting, melena, hematemesis, other Genitourinary: Denies: no symptoms, see HPI, discharge, dysuria, frequency, hematuria, pain, retention, incontinence, urgency, vag bleed/dc, other Musculoskeletal: Denies: no symptoms, see HPI, back pain, gout, joint pain, joint swelling, muscle pain, muscle stiffness, other Skin: Denies: no symptoms, see HPI, rash, change in color, change in hair/nails, dryness, lesions, other Psychiatric: Denies: no symptoms, see HPI, prior hx, anxiety, depressed feelings, emotional problems, SI, HI, hallucinations, other Neurological: Denies: no symptoms, see HPI, headache, numbness, paresthesia, seizure, tingling, tremors, focal weakness, syncope, dizziness, other Endocrine: Denies: no symptoms, see HPI, excessive sweating, flushing, intolerance to temperature, increased thirst, increased urine, unexplained weight loss, other Hematologic/Lymphatic: Denies: no symptoms, see HPI, anemia, blood clots, easy bleeding, easy bruising, swollen glands, diathesis, other ROS Narrative unable to attain full ROS due to patient altered mental status Physical Exam General Appearance: no apparent distress, alert HEENT: normocephalic, PERRL Neck: non-tender, normal inspection Respiratory/Chest: lungs clear, normal breath sounds, no respiratory distress Cardiovascular/Chest: normal rate, regular rhythm, regularly irregular Abdomen: normal bowel sounds, non tender, soft Extremities: normal range of motion 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 grossly normal, alert, other - AOx2 Last 24 Hour Vital Signs Date Time Temp Pulse Resp B/P (MAP) Pulse Ox O2 Delivery O2 Flow Rate FiO2 04/14/20 18:40 98.4 73 17 228/91 98 Room Air 04/14/20 17:21 237/118 04/14/20 17:00 77 18 Room Air 04/14/20 17:00 98.4 77 18 238/85 98 Room Air 04/14/20 16:53 98.4 81 18 237/118 (157) 98 Room Air Laboratory Tests Test 04/14/20 17:20 White Blood Count 8.5 K/UL (4.8-10.8) Red Blood Count 4.11 M/UL (4.20-5.40) L Hemoglobin 12.4 G/DL (12.0-16.0) Hematocrit 37.2 % (37.0-47.0) Mean Corpuscular Volume 90 FL (80-99) Mean Corpuscular Hemoglobin 30.2 PG (27.0-31.0) Mean Corpuscular Hemoglobin Concent 33.4 G/DL (32.0-36.0) Red Cell Distribution Width 13.9 % (11.6-14.8) Platelet Count 216 K/UL (150-450) Mean Platelet Volume 7.6 FL (6.5-10.1) Neutrophils (%) (Auto) 85.3 % (45.0-75.0) H Lymphocytes (%) (Auto) 10.3 % (20.0-45.0) L Monocytes (%) (Auto) 1.6 % (1.0-10.0) Eosinophils (%) (Auto) 1.9 % (0.0-3.0) Basophils (%) (Auto) 1.0 % (0.0-2.0) Urine Color Pale yellow Urine Appearance Clear Urine pH 8 (4.5-8.0) Urine Specific [place] 1.010 (1.005-1.035) Urine Protein 3+ (NEGATIVE) H Urine Glucose (UA) Negative (NEGATIVE) Urine Ketones 1+ (NEGATIVE) H Urine Blood 1+ (NEGATIVE) H Urine Nitrite Negative (NEGATIVE) Urine Bilirubin Negative (NEGATIVE) Urine Urobilinogen Normal MG/DL (0.0-1.0) Urine Leukocyte Esterase Negative (NEGATIVE) Urine RBC 0-2 /HPF (0 - 2) Urine WBC 0 /HPF (0 - 2) Urine Squamous Epithelial Cells Occasional /LPF Urine Bacteria Occasional /HPF (NONE) Sodium Level 127 MMOL/L (136-145) L Potassium Level 3.8 MMOL/L (3.5-5.1) Chloride Level 93 MMOL/L (98-107) L Carbon Dioxide Level 26 MMOL/L (21-32) Anion Gap 8 mmol/L (5-15) Blood Urea Nitrogen 19 mg/dL (7-18) H Creatinine 1.1 MG/DL (0.55-1.30) Estimat Glomerular Filtration Rate 46.7 mL/min (>60) Glucose Level 123 MG/DL (74-106) H Calcium Level 9.2 MG/DL (8.5-10.1) Total Bilirubin 0.5 MG/DL (0.2-1.0) Aspartate Amino Transf (AST/SGOT) 18 U/L (15-37) Alanine Aminotransferase (ALT/SGPT) < 6 U/L (12-78) L Alkaline Phosphatase 97 U/L (46-116) Troponin I 0.000 ng/mL (0.000-0.056) Pro-B-Type Natriuretic Peptide 164 pg/mL (0-125) H Total Protein 7.4 G/DL (6.4-8.2) Albumin 3.6 G/DL (3.4-5.0) Globulin 3.8 g/dL Albumin/Globulin Ratio 0.9 (1.0-2.7) L Height (Feet): 5 Weight (Pounds): 120 Medications Current Medications Medications (Trade) Dose Ordered Sig/Corina Route PRN Reason Start Time Stop Time Status Last Admin Dose Admin Labetalol HCl (Normodyne) 10 mg ONCE ONCE IV 04/14/20 19:00 04/14/20 19:01 Levofloxacin 150 ml @ 100 mls/hr NOW ONCE IVPB 04/14/20 18:30 04/14/20 19:59 Assessment/Plan Assessment/Plan: Mrs. Terry is a 89F with PMH of HTN and Dementia who presents for elevated blood pressure A: # Hypertension Emergency - resolved # Acute Encephalopathy 2/2 UTI, HTN # Hypovolemic Hyponatremia 2/2 poor oral intake # UTI # Dementia # Essential HTN P: - hemodynamically stable - sat well on RA, keep O2 > 92% - CXR reviewed showed possible atelectasis vs infiltrate, no concerns for PNA, no sob, cough, fever, or hypoxia, will monitor - continue home losartan 100 mg daily - start amlodipine 10 mg daily - clonidine .1 mg now - clonidine .1 mg prn and hydralazine 25 mg prn SBP > 170 - UA negative, will try to call family about history - trend sodium - continue home donepezil - 1:1 sitter CODE: Full GI: none DVT: Lovenox Fluids: None Diet: Low salt Dispo: pending HTN emergency control In addition to the usual care above I spent additional time reviewing records in the EMR and paper charts including physician documentation, nursing documentation, lab results, imaging and clinical documentation. Total time included was 25 min. Time spent on this encounter was 45 minutes which included 25 minutes of counseling and care coordination. I discussed with the nurse at bedside. Time of note may not reflect time patient was seen. Alfred Rodarte D.O Apr 14, 2020 18:55
[2020-04-14] MEDS ORDERED: Labetalol 5mg/ml 20ml vial IV ONE (19:00)
[2020-04-14] MEDS ORDERED: Miralax 17gm pkt ORAL PRN (19:15)
[2020-04-14] MEDS ORDERED: Milk of Magnesia 30ml Ud ORAL PRN (19:15)
[2020-04-14] MEDS ORDERED: Metoclopramide 10mg/2ml Inj IVP PRN (19:15)
[2020-04-14] MEDS ORDERED: HydrALAZINE 25mg tab ORAL PRN (19:15)
[2020-04-14] MEDS ORDERED: Mylanta II UD 30ml ORAL PRN (19:15)
[2020-04-14] MEDS ORDERED: Albuterol/Ipratropium 3ml neb HHN PRN (19:15)
--- NOTE | 2020-04-14 19:41 | General Progress Note ---
Advance Care Planning Advance Care Planning Advance Care Planning [facility] An independent Hospitalist group, where every patient is our [facility] Internal Medicine Hospitalist Advanced Care Planning Note Please contact us at Date of Discussion: A [id number] discussion with the regarding the patient's advanced care planning took place during this hospitalization on the above date. The discussion included the explanation and discussion of advance directives and associated forms/documents, as well as the patient's current code status. We also discussed at length the patient's medical conditions (both acute and chronic), general prognosis, treatment options, and goals of care. The following summarizes the discussion: Advance Care Planning/Goals of Care: - Will attempt to fill out an AD and/or POLST with the patient prior to discharge, if not already completed - Continue current evaluation and management of any acute and chronic medical issues - Will continue to support the patient/family - Will continue to discuss both short- and long-term goals of care DPOA-HC/Surrogate Decision Maker: None currently appointed Code Status: Full Code Advanced Care Planning Forms/Documents Completed: Deferred until later encounter/visit A total of minutes was spent on this discussion, including counseling, answering questions, and completing, if any, pertinent advanced care planning forms/documents. Time of note may not reflect time of encounter. Alfred Rodarte D.O Apr 14, 2020 19:41
[2020-04-14 20:00] VITALS: BP 197/86
[2020-04-14] MEDS ORDERED: Enoxaparin 40mg Inj SUBQ SCH (20:15)
[2020-04-14 21:00] VITALS: BP 178/87
--- NOTE | 2020-04-14 21:19 | History & Physical ---
History and Physical History & Physicial Mrs. Terry presenting to ED for HTN urgency. Restarted home losartan 100 mg. 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 Will give clonidine .1 mg to acutely lower BP along with hydralazine prn. Full note to be dictated. Alfred Rodarte D.O Apr 14, 2020 21:19
[2020-04-14] MEDS: Losartan 50mg tab ORAL SCH (21:32)
[2020-04-14] MEDS: Enoxaparin 30mg Inj SUBQ SCH (21:37)
[2020-04-15] VITALS (7 sets, daily range): BP systolic 137–164; BP diastolic 50–93
[2020-04-15] MEDS ORDERED: ALPRAZolam 0.5mg tab ORAL PRN ×2 (04:15→19:45)
[2020-04-15] MEDS ORDERED: ALPRAZolam 0.25mg tab ORAL ONE (05:00)
[2020-04-15 07:52] LABS: BASOPHILS % (AUTO) 0.5 % (0.0-2.0); HEMATOCRIT 35.2 % (37.0-47.0); HEMOGLOBIN 11.6 G/DL (12.0-16.0); LYMPHOCYTES % (AUTO) 12.2 % (20.0-45.0); MEAN CORPUSCULAR VOLUME 89 FL (80-99); MONOCYTES % (AUTO) 3.9 % (1.0-10.0); NEUTROPHILS % (AUTO) 83.3 % (45.0-75.0); PLATELET COUNT 217 K/UL (150-450); RED BLOOD COUNT 3.95 M/UL (4.20-5.40); RED CELL DISTRIBUTION WIDTH 13.1 % (11.6-14.8); WHITE BLOOD COUNT 6.7 K/UL (4.8-10.8)
[2020-04-15 08:20] LABS: CALCIUM 8.7 MG/DL (8.5-10.1); CREATININE 1.3 MG/DL (0.55-1.30); PHOSPHORUS 3.3 MG/DL (2.5-4.9); POTASSIUM 3.9 MMOL/L (3.5-5.1)
[2020-04-15] MEDS: Losartan 50mg tab ORAL SCH (09:02)
[2020-04-15] MEDS: Donepezil 5mg Tab ORAL SCH (09:03)
[2020-04-15] MEDS ORDERED: Bactrim-DS 1 tab ORAL SCH ×2 (09:45→10:15)
--- NOTE | 2020-04-15 10:15 | General Progress Note ---
Subjective ROS Limited/Unobtainable: Yes - altered, follows commands but unable to communicate using merchandise planner Allergies: Coded Allergies: PENICILLINS (Unverified Allergy, Unknown, 12/06/19) Uncoded Allergies: PENECILLIN (Allergy, Unknown, 04/14/20) Subjective BP better controlled over night. Noted to have increased urinary frequency. Bladder scan neg for retention. Seems mildly altered, but able to follow simple commands. However, had difficulty communicating with lao merchandise planner over phone. Objective Last 24 Hour Vital Signs Date Time Temp Pulse Resp B/P (MAP) Pulse Ox O2 Delivery O2 Flow Rate FiO2 04/15/20 09:02 65 145/64 04/15/20 09:02 145/64 04/15/20 04:00 98.2 70 18 155/50 (85) 97 04/15/20 04:00 70 04/15/20 00:00 70 04/15/20 00:00 98.0 66 20 145/66 (92) 98 04/14/20 22:20 39 04/14/20 21:57 Room Air 04/14/20 21:32 78 178/87 04/14/20 21:32 178/87 04/14/20 21:02 78 04/14/20 21:00 98.5 18 178/87 (117) 96 04/14/20 20:45 98.6 77 20 187/79 99 Room Air 04/14/20 20:00 98.3 71 17 197/86 98 Room Air 04/14/20 19:33 192/67 04/14/20 19:02 73 228/91 04/14/20 18:40 98.4 73 17 228/91 98 Room Air 04/14/20 17:21 237/118 04/14/20 17:00 77 18 Room Air 04/14/20 17:00 98.4 77 18 238/85 98 Room Air 04/14/20 16:53 98.4 81 18 237/118 (157) 98 Room Air Intake and Output 04/14/20 04/15/20 19:00 07:00 Intake Total 700 ml Balance 700 ml Intake Oral 700 ml # Voids 6 # Bowel Movements 1 Laboratory Tests 04/14/20 17:20: White Blood Count 8.5, Red Blood Count 4.11L, Hemoglobin 12.4, Hematocrit 37.2, Mean Corpuscular Volume 90, Mean Corpuscular Hemoglobin 30.2, Mean Corpuscular Hemoglobin Concent 33.4, Red Cell Distribution Width 13.9, Platelet Count 216, Mean Platelet Volume 7.6, Neutrophils (%) (Auto) 85.3H, Lymphocytes (%) (Auto) 10.3L, Monocytes (%) (Auto) 1.6, Eosinophils (%) (Auto) 1.9, Basophils (%) (Auto) 1.0, Urine Color Pale yellow, Urine Appearance Clear, Urine pH 8, Urine Specific [place] 1.010, Urine Protein 3+H, Urine Glucose (UA) Negative, Urine Ketones 1+H, Urine Blood 1+H, Urine Nitrite Negative, Urine Bilirubin Negative, Urine Urobilinogen Normal, Urine Leukocyte Esterase Negative, Urine RBC 0-2, Urine WBC 0, Urine Squamous Epithelial Cells Occasional, Urine Bacteria Occasional, Sodium Level 127L, Potassium Level 3.8, Chloride Level 93L, Carbon Dioxide Level 26, Anion Gap 8, Blood Urea Nitrogen 19H, Creatinine 1.1, Estimat Glomerular Filtration Rate 46.7, Glucose Level 123H, Calcium Level 9.2, Total Bilirubin 0.5, Aspartate Amino Transf (AST/SGOT) 18, Alanine Aminotransferase (ALT/SGPT) < 6L, Alkaline Phosphatase 97, Troponin I 0.000, Pro-B-Type Natriuretic Peptide 164H, Total Protein 7.4, Albumin 3.6, Globulin 3.8, Albumin/Globulin Ratio 0.9L 04/14/20 19:00: Lactic Acid Level 0.90 04/15/20 06:15: White Blood Count 6.7, Red Blood Count 3.95L, Hemoglobin 11.6L, Hematocrit 35.2L , Mean Corpuscular Volume 89, Mean Corpuscular Hemoglobin 29.3, Mean Corpuscular Hemoglobin Concent 32.8, Red Cell Distribution Width 13.1, Platelet Count 217, Mean Platelet Volume 7.3, Neutrophils (%) (Auto) 83.3H, Lymphocytes (%) (Auto) 12.2L, Monocytes (%) (Auto) 3.9, Eosinophils (%) (Auto) 0.0, Basophils (%) (Auto) 0.5, Sodium Level 123L, Potassium Level 3.9, Chloride Level 89L, Carbon Dioxide Level 25, Anion Gap 9, Blood Urea Nitrogen 23H, Creatinine 1.3, Estimat Glomerular Filtration Rate 38.6, Glucose Level 107H, Calcium Level 8.7, Troponin I 0.003, Phosphorus Level 3.3, Magnesium Level 2.1, Lipase 69L Height (Feet): 5 Height (Inches): 0.00 Weight (Pounds): 120 General Appearance: no apparent distress, alert EENT: PERRL/EOMI Neck: non-tender, normal inspection Cardiovascular: normal rate, regular rhythm, no JVD Respiratory/Chest: lungs clear, normal breath sounds, no respiratory distress Abdomen: normal bowel sounds, non tender, soft Extremities: normal range of motion Edema: no edema noted Arm (L), no edema noted Arm (R), no edema noted Leg (L), no edema noted Leg (R), no edema noted Pedal (L), no edema noted Pedal (R), no edema noted Generalized 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 Terry is a 89F with PMH of HTN and Dementia who presents for elevated blood pressure A: # Hypertension Emergency - improving # Acute Encephalopathy 2/2 UTI, HTN # Hypovolemic Hyponatremia 2/2 poor oral intake # UTI # Dementia # Essential HTN P: - BP better controlled - sat well on RA, keep O2 > 92% - CXR reviewed showed possible atelectasis vs infiltrate, no concerns for PNA, no sob, cough, fever, or hypoxia, will monitor - CT head review negative for acute pathology - continue home losartan 100 mg daily - continue amlodipine 10 mg daily - will add hydralazine 25 mg TID - clonidine .1 mg prn and hydralazine 25 mg prn SBP > 170 - unable to get a hold of family regarding UTI history, will treat with Bactrim given increased urinary frequency - bactrim 1 tab BID 3 days - trend sodium - f/u serum osmolairty, urine Na and osmo - IVF - continue home donepezil - 1:1 sitter CODE: Full GI: none DVT: Lovenox Fluids: NS 100 cc Diet: Low salt Dispo: pending improvement of sodium and mental status Time spent on this encounter was 35 minutes which included 21 minutes of counseling and care coordination. I discussed with the nurse at bedside. Time of note may not reflect time patient was seen. Alfred Rodarte D.O Apr 15, 2020 10:15
[2020-04-15] MEDS: HydrALAZINE 25mg tab ORAL SCH ×2 (13:44→21:28)
[2020-04-15] MEDS ORDERED: Sennosides 8.6mg tab ORAL PRN (15:30)
[2020-04-15] MEDS: Bactrim-DS 1 tab ORAL SCH (18:17)
[2020-04-15] MEDS: Enoxaparin 30mg Inj SUBQ SCH (21:28)
[2020-04-16] VITALS (7 sets, daily range): BP systolic 130–167; BP diastolic 67–77
[2020-04-16] MEDS: HydrALAZINE 25mg tab ORAL SCH ×3 (05:48→21:00)
[2020-04-16 07:51] LABS: BASOPHILS % (AUTO) 1.1 % (0.0-2.0); EOSINOPHILS % (AUTO) 3.2 % (0.0-3.0); HEMATOCRIT 34.3 % (37.0-47.0); HEMOGLOBIN 11.3 G/DL (12.0-16.0); LYMPHOCYTES % (AUTO) 21.3 % (20.0-45.0); MEAN CORPUSCULAR VOLUME 90 FL (80-99); MONOCYTES % (AUTO) 5.7 % (1.0-10.0); NEUTROPHILS % (AUTO) 68.8 % (45.0-75.0); PLATELET COUNT 220 K/UL (150-450); RED BLOOD COUNT 3.82 M/UL (4.20-5.40); RED CELL DISTRIBUTION WIDTH 13.2 % (11.6-14.8); WHITE BLOOD COUNT 6.3 K/UL (4.8-10.8)
[2020-04-16 08:14] LABS: CALCIUM 8.7 MG/DL (8.5-10.1); CREATININE 1.2 MG/DL (0.55-1.30); PHOSPHORUS 3.2 MG/DL (2.5-4.9); POTASSIUM 3.8 MMOL/L (3.5-5.1)
--- NOTE | 2020-04-16 08:37 | Consultation ---
History of Present Illness General Chief Complaint: General Complaint Reason for Consultation: Hyponatremia, hypertensive urgency Present Illness HPI 89 year old female with the past medical history of HTN and dementia presents with hypertensive urgency. History obtained from chart reviewed. Labs notable for hyponatremia of 123. Allergies: Coded Allergies: PENICILLINS (Unverified Allergy, Unknown, 12/06/19) Uncoded Allergies: PENECILLIN (Allergy, Unknown, 04/14/20) Medication History Scheduled Alprazolam* (Xanax*), 1 MG ORAL DAILY, (Reported) Amoxicillin/Potassium Clav 125-31.25 Mg/5 Ml (Augmentin 125-31.25 Mg/5 Ml), Unknown Dose ORAL THREE TIMES A DAY, (Reported) Docusate Sodium* (Docusate Sodium*), 250 MG ORAL THREE TIMES A DAY, (Reported) Donepezil Hcl* (Donepezil Hcl*), 5 MG ORAL DAILY, (Reported) Ibuprofen (Ibuprofen*), 600 MG ORAL Q8HR, (Reported) Losartan Potassium* (Losartan Potassium*), 100 MG ORAL HS, (Reported) Metronidazole* (Flagyl*), Unknown Dose ORAL EVERY 8 HOURS, (Reported) Pregabalin* (Lyrica*), 75 MG ORAL HS, (Reported) Scheduled PRN Hydroxyzine Hcl (Hydroxyzine Hcl), 10 MG PO DAILY PRN for Itching, (Reported) Patient History Healthcare decision maker Resuscitation status Advanced Directive on File Review of Systems All Other Systems: negative except mentioned in HPI Physical Exam General Appearance: confused Lines, tubes and drains: peripheral HEENT: normocephalic, atraumatic Neck: non-tender, normal alignment Respiratory/Chest: chest wall non-tender, lungs clear Cardiovascular/Chest: normal peripheral pulses Abdomen: normal bowel sounds, non tender Extremities: normal range of motion, non-tender Neurologic: alert Last 24 Hour Vital Signs Date Time Temp Pulse Resp B/P (MAP) Pulse Ox O2 Delivery O2 Flow Rate FiO2 04/16/20 05:48 130/70 04/16/20 04:00 56 04/16/20 04:00 97.7 61 18 130/70 (90) 95 04/16/20 00:00 97.9 69 20 167/77 (107) 95 04/16/20 00:00 69 04/15/20 21:28 149/74 04/15/20 21:00 Room Air 04/15/20 20:00 56 04/15/20 20:00 97.9 64 18 149/74 (99) 95 04/15/20 16:00 63 04/15/20 16:00 97.0 71 20 140/66 (90) 97 04/15/20 15:28 98.2 04/15/20 13:44 137/78 04/15/20 13:30 137/78 (97) 04/15/20 12:28 181/69 04/15/20 12:00 71 04/15/20 12:00 98.2 71 20 164/93 (116) 99 04/15/20 09:02 65 145/64 04/15/20 09:02 145/64 04/15/20 09:00 Room Air Intake and Output 04/15/20 04/16/20 19:00 07:00 Intake Total 855 ml Output Total 575 ml 2800 ml Balance 280 ml -2800 ml Intake Oral 855 ml Output Urine Total 575 ml 2800 ml # Voids 5 14 Laboratory Tests Test 04/15/20 11:10 04/15/20 11:40 04/15/20 14:45 04/15/20 20:45 Urine Osmolality 354 mOsm/kg (429-449) L Urine Random Sodium < 20 mmol/L (20-110) L Osmolality 267 mOsm/kg (297-317) L Sodium Level 123 MMOL/L (136-145) L 126 MMOL/L (136-145) L Test 04/16/20 05:45 White Blood Count 6.3 K/UL (4.8-10.8) Red Blood Count 3.82 M/UL (4.20-5.40) L Hemoglobin 11.3 G/DL (12.0-16.0) L Hematocrit 34.3 % (37.0-47.0) L Mean Corpuscular Volume 90 FL (80-99) Mean Corpuscular Hemoglobin 29.5 PG (27.0-31.0) Mean Corpuscular Hemoglobin Concent 32.8 G/DL (32.0-36.0) Red Cell Distribution Width 13.2 % (11.6-14.8) Platelet Count 220 K/UL (150-450) Mean Platelet Volume 7.1 FL (6.5-10.1) Neutrophils (%) (Auto) 68.8 % (45.0-75.0) Lymphocytes (%) (Auto) 21.3 % (20.0-45.0) Monocytes (%) (Auto) 5.7 % (1.0-10.0) Eosinophils (%) (Auto) 3.2 % (0.0-3.0) H Basophils (%) (Auto) 1.1 % (0.0-2.0) Sodium Level 132 MMOL/L (136-145) L Potassium Level 3.8 MMOL/L (3.5-5.1) Chloride Level 100 MMOL/L (98-107) Carbon Dioxide Level 23 MMOL/L (21-32) Anion Gap 9 mmol/L (5-15) Blood Urea Nitrogen 20 mg/dL (7-18) H Creatinine 1.2 MG/DL (0.55-1.30) Estimat Glomerular Filtration Rate 42.3 mL/min (>60) Glucose Level 86 MG/DL (74-106) Calcium Level 8.7 MG/DL (8.5-10.1) Phosphorus Level 3.2 MG/DL (2.5-4.9) Magnesium Level 2.3 MG/DL (1.8-2.4) Height (Feet): 5 Height (Inches): 0.00 Weight (Pounds): 120 Medications Current Medications Medications (Trade) Dose Ordered Sig/Corina Route PRN Reason Start Time Stop Time Status Last Admin Dose Admin Acetaminophen (Tylenol) 650 mg Q4H PRN ORAL Mild Pain (Pain Scale 1-3) 04/14/20 19:15 05/14/20 19:14 04/15/20 14:58 Acetaminophen (Tylenol) 650 mg Q4H PRN ORAL Temp >100.5 04/14/20 19:15 05/14/20 19:14 Al Hydroxide/Mg Hydroxide (Mylanta II) 30 ml Q6H PRN ORAL dyspepsia 04/14/20 19:15 05/14/20 19:14 Albuterol/ Ipratropium (Albuterol/ Ipratropium) 3 ml Q4H PRN HHN Shortness of Breath 04/14/20 19:15 04/19/20 19:14 Alprazolam (Xanax) 0.5 mg DAILYPRN PRN ORAL Agitation 04/15/20 19:45 04/22/20 19:44 04/16/20 00:47 Amlodipine Besylate (Norvasc) 10 mg DAILY ORAL 04/14/20 21:00 05/14/20 20:59 04/15/20 09:02 Clonidine HCl (Catapres Tab) 0.1 mg Q4H PRN ORAL For High Blood Pressure 04/14/20 22:15 07/13/20 22:14 Dextrose (Dextrose 50%) 25 ml Q30M PRN IV Hypoglycemia 04/14/20 19:15 07/13/20 19:14 Dextrose (Dextrose 50%) 50 ml Q30M PRN IV Hypoglycemia 04/14/20 19:15 07/13/20 19:14 Donepezil HCl (Aricept) 5 mg DAILY ORAL 04/15/20 09:00 05/15/20 08:59 04/15/20 09:03 Enoxaparin Sodium (Lovenox) 30 mg Q24H SUBQ 04/14/20 21:00 07/13/20 20:59 04/15/20 21:28 Hydralazine HCl (Apresoline) 25 mg Q4H PRN ORAL For High Blood Pressure 04/14/20 19:15 07/13/20 19:14 04/15/20 12:28 Hydralazine HCl (Apresoline) 25 mg Q8HR ORAL 04/15/20 14:00 07/14/20 13:59 04/16/20 05:48 Losartan Potassium (Cozaar) 100 mg DAILY ORAL 04/14/20 21:00 05/14/20 20:59 04/15/20 09:02 Magnesium Hydroxide (Mom) 30 ml HSPRN PRN ORAL Constipation 04/14/20 19:15 05/14/20 19:14 04/15/20 00:04 Metoclopramide HCl (Reglan) 10 mg Q6H PRN IVP Nausea & Vomiting 04/14/20 19:15 05/14/20 19:14 04/14/20 23:44 Polyethylene Glycol (Miralax) 17 gm HSPRN PRN ORAL Constipation 04/14/20 19:15 05/14/20 19:14 04/15/20 14:58 Sennosides (Senokot) 8.6 mg DAILYPRN PRN ORAL Constipation 04/15/20 15:30 05/15/20 15:29 Sodium Chloride 1,000 ml @ 100 mls/hr Q10H IV 04/15/20 11:00 05/15/20 10:59 04/16/20 06:36 Trimethoprim/ Sulfamethoxazole (Bactrim-DS) 1 tab TWICE A DAY ORAL 04/15/20 18:00 04/22/20 17:59 04/15/20 18:17 Assessment/Plan Diagnosis [place]: #Hyponatremia- hypovolumic - improving with hydation #HTN - urgency #acute encephalopathy #Dementia #UTI - continue NS at 50cc/hr for one more day - amlodipine 10mg daily - losartan 100mg daily - increase hydralazine 50mg TID - monitor electrolytes - monitor BP - bactrim for UTI Jesús Cheung M.D. Apr 16, 2020 08:36
[2020-04-16] MEDS: Losartan 50mg tab ORAL SCH (09:07)
[2020-04-16] MEDS: Bactrim-DS 1 tab ORAL SCH ×2 (09:08→17:23)
[2020-04-16] MEDS: Donepezil 5mg Tab ORAL SCH (09:08)
--- NOTE | 2020-04-16 09:29 | General Progress Note ---
Subjective Constitutional: Denies: no symptoms, chills, diaphoresis, fever, malaise, weakness, other HEENT: Denies: no symptoms, eye pain, blurred vision, tearing, double vision, ear pain, ear discharge, nose pain, nose congestion, throat pain, throat swelling, mouth pain, mouth swelling, other Cardiovascular: Denies: no symptoms, chest pain, edema, irregular heart rate, lightheadedness, palpitations, syncope, other Respiratory: Denies: no symptoms, cough, orthopnea, shortness of breath, SOB with excertion, SOB at rest, sputum, stridor, wheezing, other Gastrointestinal/Abdominal: Denies: no symptoms, abdomen distended, abdominal pain, black stools, tarry stools, blood in stool, constipated, diarrhea, difficulty swallowing, nausea, poor appetite, poor fluid intake, rectal bleeding, vomiting, other Genitourinary: Denies: no symptoms, burning, discharge, frequency, flank pain, hematuria, incontinence, pain, urgency, other Neurologic/Psychiatric: Denies: no symptoms, anxiety, depressed, emotional problems, headache, numbness, paresthesia, pre-existing deficit, seizure, tingling, tremors, weakness, other Endocrine: Denies: no symptoms, excessive sweating, flushing, intolerance to cold, intolerance to heat, increased hunger, increased thirst, increased urine, unexplained weight gain, unexplained weight loss, other Hematologic/Lymphatic: Denies: no symptoms, anemia, easy bleeding, easy bruising, other Allergies: Coded Allergies: PENICILLINS (Unverified Allergy, Unknown, 12/06/19) Uncoded Allergies: PENECILLIN (Allergy, Unknown, 04/14/20) Subjective no acute events overnight. BP better controlled. Had BM overnight which seemed to improve her mental status as she went to sleep. Sodium improved. Objective Last 24 Hour Vital Signs Date Time Temp Pulse Resp B/P (MAP) Pulse Ox O2 Delivery O2 Flow Rate FiO2 04/16/20 09:07 154/70 04/16/20 08:00 97.5 61 20 154/70 (98) 96 04/16/20 05:48 130/70 04/16/20 04:00 56 04/16/20 04:00 97.7 61 18 130/70 (90) 95 04/16/20 00:00 97.9 69 20 167/77 (107) 95 04/16/20 00:00 69 04/15/20 21:28 149/74 04/15/20 21:00 Room Air 04/15/20 20:00 56 04/15/20 20:00 97.9 64 18 149/74 (99) 95 04/15/20 16:00 63 04/15/20 16:00 97.0 71 20 140/66 (90) 97 04/15/20 15:28 98.2 04/15/20 13:44 137/78 04/15/20 13:30 137/78 (97) 04/15/20 12:28 181/69 04/15/20 12:00 71 04/15/20 12:00 98.2 71 20 164/93 (116) 99 Intake and Output 04/15/20 04/16/20 19:00 07:00 Intake Total 855 ml Output Total 575 ml 2800 ml Balance 280 ml -2800 ml Intake Oral 855 ml Output Urine Total 575 ml 2800 ml # Voids 5 14 Laboratory Tests 04/15/20 11:10: Urine Osmolality 354L, Urine Random Sodium < 20L 04/15/20 11:40: Osmolality 267L 04/15/20 14:45: Sodium Level 123L 04/15/20 20:45: Sodium Level 126L 04/16/20 05:45: White Blood Count 6.3, Red Blood Count 3.82L, Hemoglobin 11.3L, Hematocrit 34.3L , Mean Corpuscular Volume 90, Mean Corpuscular Hemoglobin 29.5, Mean Corpuscular Hemoglobin Concent 32.8, Red Cell Distribution Width 13.2, Platelet Count 220, Mean Platelet Volume 7.1, Neutrophils (%) (Auto) 68.8, Lymphocytes (%) (Auto) 21.3, Monocytes (%) (Auto) 5.7, Eosinophils (%) (Auto) 3.2H, Basophils (%) (Auto) 1.1, Sodium Level 132L, Potassium Level 3.8, Chloride Level 100, Carbon Dioxide Level 23, Anion Gap 9, Blood Urea Nitrogen 20H, Creatinine 1.2, Estimat Glomerular Filtration Rate 42.3, Glucose Level 86, Calcium Level 8.7, Phosphorus Level 3.2, Magnesium Level 2.3 Height (Feet): 5 Height (Inches): 0.00 Weight (Pounds): 120 General Appearance: no apparent distress, alert EENT: PERRL/EOMI Neck: non-tender, normal inspection Cardiovascular: normal rate, regular rhythm, no JVD Respiratory/Chest: lungs clear, normal breath sounds, no respiratory distress Abdomen: normal bowel sounds, non tender, no organomegaly Extremities: normal range of motion Edema: no edema noted Arm (L), no edema noted Arm (R), no edema noted Leg (L), no edema noted Leg (R), no edema noted Pedal (L), no edema noted Pedal (R), no edema noted 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 Terry is a 89F with PMH of HTN and Dementia who presents for elevated blood pressure A: # Hypertension Emergency - stable # Acute Encephalopathy 2/2 UTI, HTN - improved # 1/2 Bottles Gram + Cocci clusters # Hypoosmotic -Hypovolemic Hyponatremia 2/2 poor oral intake - improving # UTI # Dementia # Essential HTN P: - BP better controlled - sat well on RA, keep O2 > 92% - 1/2 bottles gram positive clusters; will await final speciation but likely contaminant - continue home losartan 100 mg daily - continue amlodipine 10 mg daily - continue hydralazine 25 mg TID - clonidine .1 mg prn and hydralazine 25 mg prn SBP > 170 - bactrim 1 tab BID 3 days last course tomorrow - trend sodium - improved - f/u serum osmolarity, urine Na and osmo > likely hypovolemia etiology based on results - IVF - continue home donepezil - 1:1 sitter - alprazolam .5 mg prn; home med rec confirmed by daughter whom patient has been on for a while for agitation, i discussed with daughter to try wean off the medication - Nephrology Dr. 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 CODE: Full GI: none DVT: Lovenox Fluids: NS 50 cc Diet: Low salt Dispo: pending final results of BC and likely discharge tomorrow. Time spent on this encounter was 45 minutes which included 25 minutes of counseling and care coordination. I discussed with the nurse at bedside. Time of note may not reflect time patient was seen. Alfred Rodarte D.O Apr 16, 2020 09:29
[2020-04-16] MEDS: Enoxaparin 30mg Inj SUBQ SCH ×2 (20:59→21:00)
[2020-04-17] VITALS: BP 155/73
[2020-04-17 04:00] VITALS: BP 161/75
[2020-04-17] MEDS: HydrALAZINE 25mg tab ORAL SCH ×2 (05:56→14:28)
[2020-04-17 07:04] LABS: CALCIUM 8.6 MG/DL (8.5-10.1); CREATININE 1.1 MG/DL (0.55-1.30); POTASSIUM 3.6 MMOL/L (3.5-5.1)
[2020-04-17 08:00] VITALS: BP 185/77
[2020-04-17] MEDS: Donepezil 5mg Tab ORAL SCH (08:11)
[2020-04-17] MEDS: Losartan 50mg tab ORAL SCH (08:13)
[2020-04-17] MEDS: Bactrim-DS 1 tab ORAL SCH (08:13)
[2020-04-17] MEDS ORDERED: NORVASC10 MG ORAL (10:00)
[2020-04-17] MEDS ORDERED: SENNA8.6 M2 ORAL (10:00)
[2020-04-17] MEDS ORDERED: COZAAR50 MG ORAL (10:00)
[2020-04-17] MEDS ORDERED: HYDRALAZINE HCL25 M1 ORAL (10:00)
[2020-04-17] MEDS ORDERED: MOM30 ML ORAL (10:00)
[2020-04-17] MEDS ORDERED: BACTRIM-DS1 EA ORAL (10:01)
--- NOTE | 2020-04-17 10:02 | Discharge Instructions ---
Discharge Instructions Discharge Instructions Diet: 2 GM sodium (low sodium) Resume Normal Activity?: Yes Follow Up Orders Please follow up with PCP in 1 week For Congestive Heart Failure Reminder Report to your physician any weight gain of 5 pounds or more in one week. Alfred Rodarte D.O Apr 17, 2020 10:01
--- NOTE | 2020-04-17 10:18 | Discharge Summary ---
Discharge Summary Hospital Course Date of Admission Apr 14, 2020 at 18:33 Date of Discharge Admitting Diagnosis hypertensive urgency HPI Edgar Terry is a 89 year old female who was admitted on Apr 14, 2020 at 18:33 for Hypertensive Urgency Hospital Course Mrs. Terry is a 89F with PMH of HTN and Dementia who presents for elevated blood pressure. Upon initial admission her SBP was > 230; CT head neg and no other signs of end organ damage. She is Amharic speaking only with advancing dementia per daughter. Her BP was stabilized with losartan, amlodipine and Hydralazine. Per daughter, prior to her arrival she was diagnoses with UTI by her PCP but only took one dose of abx before being admitted therefore I continued treatment therapy. She had frequent urination that subsided, bladder scan neg for retention. She was constipated and once she had a normal BM patient became more relaxed. She was noted to have a hypovolemic hyponatremia that improved with NS. She grew 1/2 bottles of gram + cocci coag neg staph likely contaminant. She remained hemodynamically stable throughout her admission. I discussed case with her daughter whom the patient lives with and she would like to continue care for her at home. She is medically stable for discharge today back with her daughter. 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, alert Skin: normal pigmentation, warm/dry A: # Hypertension Urgency - stable # Acute Encephalopathy 2/2 UTI, HTN - improved # 1/2 Bottles Gram + Cocci clusters likley contaminnat # Hypoosmotic -Hypovolemic Hyponatremia 2/2 poor oral intake - improved # UTI # Dementia # Essential HTN P: - continue losartan 100 mg daily, amlodipine 10 mg daily, and Hydralazine 50 mg TID - 1/2 bottles gram positive staph coag negative - finish two more tablets of Bactrim to complete 3 day course - Bowel regimen prn senna, milk of mag - continue home donepezil - I discussed with daughter about her use of alprazolam prn, she reports her PCP has started her on that on as needed basis for anxiety. I instructed daughter to try use as least as possible. Dispo: discharge home with daughter Time spent on this encounter was 31 minutes which included 25 minutes of counseling and care coordination. I discussed with the nurse at bedside. Time of note may not reflect time patient was seen. Discharge Discharge Vital Signs Last Vital Signs Date Time Temp Pulse Resp B/P (MAP) Pulse Ox O2 Delivery O2 Flow Rate FiO2 04/17/20 08:13 88 185/77 04/17/20 08:00 98.1 20 99 04/16/20 21:00 Room Air Discharge Disposition Patient was discharged to Alfred Rodarte D.O Apr 17, 2020 10:18
[2020-04-17] MEDS ORDERED: XANAX0.5 MG ORAL (11:36)
[2020-04-17 12:00] VITALS: BP 141/74
[2020-04-17 15:06] VITALS: BP 157/71
== END 2020-04-17 16:14 | disposition home or self-care (01) | DRG 305 ==
LOC: EDBD 16:53 → EMR 17:11 → 2E 18:33 → EDBEDREQ 20:20 → 2E 22:45
DX: I16.0 Hypertensive urgency (principal); G93.40 Encephalopathy, unspecified; N39.0 Urinary tract infection, site not specified; E87.1 Hypo-osmolality and hyponatremia; F03.90 Unspecified dementia, unspecified severity, without behavioral disturbance, psychotic disturbance, mood disturbance, and anxiety; Z88.0 Allergy status to penicillin; I10 Essential (primary) hypertension; E86.1 Hypovolemia
CPT/HCPCS: 36415; 70450; 71045; 80048; 80053; 81003; 83605; 83690; 83735; 83880; 83930; 83935; 84100; 84295; 84300; 84484; 85025; 87040; 87181; 93005; 96365; 96375; 99285; J2765; J7030; U0002

== ENCOUNTER 2020-08-13 00:10 | Inpatient (IN) | payer OTHER, MEDICAID ==
[~2020-08-13] VITALS: Ht 144.8 cm; Wt 44.5 kg
[~2020-08-13 00:10] MED LIST changes: +AUGMENTIN125 MG/52 ORAL; +BACTRIM-DS1 EA ORAL; +COZAAR50 MG ORAL; +FLAGYL250 MG ORAL; +HYDRALAZINE HCL25 M1 ORAL; +MOM30 ML ORAL; +NORVASC10 MG ORAL; +SENNA8.6 M2 ORAL; +XANAX0.5 MG ORAL
[2020-08-13] MEDS ORDERED: Morphine Sulfate 4mg/ml Inj (IV USE ONLY) IVP ONE (00:30)
--- NOTE | 2020-08-13 00:30 | NUR ---
ED Nurse Note: Kyrgyz speaking pt, brought in by daughter who reports pt has been c/o RLQ abdominal pain x2 weeks. Reports pt was unwilling to come to the hospital. Pt is now complaining of abdominal pain and generalized body aches. Pt is AAO x3 and ambulated into ED with x1 assist.
--- NOTE | 2020-08-13 00:34 | Emergency Room Report ---
History of Present Illness General Chief Complaint: Pain Source: Patient Present Illness HPI 89-year-old female here with diffuse pain. Patient has been admitted to this hospital before for hypertensive urgency. Is complaining now of diffuse pain but is worse in the abdomen. Says that she is feeling me in the epigastric and right upper quadrant abdominal pain. Has been feeling this for 2 weeks but it suddenly got worse tonight. Not complaining of pain all over. Denies headache, vision change, fevers, chills, chest pain, palpitations, back pain, nausea, vomiting. Has had diarrhea over the past few days. Allergies: Coded Allergies: PENICILLINS (Unverified Allergy, Unknown, 12/06/19) Uncoded Allergies: PENECILLIN (Allergy, Unknown, 04/14/20) COVID-19 Screening Contact w/high risk pt: No Recent Travel to affected area: No Experienced COVID-19 symptoms?: No COVID-19 symptoms experienced: Fever (T>100.4F or >38C) COVID-19 Testing performed ALTERATIONS TAILOR: No Nursing Documentation-PMH Hx Cardiac Problems: Yes Hx Hypertension: Yes Hx Cancer: No Hx Gastrointestinal Problems: No Hx Neurological Problems: Yes Hx Dementia: Yes Review of Systems All Other Systems: negative except mentioned in HPI Physical Exam Vital Signs Date Time Temp Pulse Resp B/P (MAP) Pulse Ox O2 Delivery O2 Flow Rate FiO2 08/13/20 00:16 98.1 98 22 211/105 (140) 95 Room Air Sp02 EP Interpretation: reviewed, normal General Appearance: no apparent distress, alert, non-toxic Head: normocephalic, atraumatic Eyes: bilateral eye normal inspection, bilateral eye PERRL ENT: hearing grossly normal, normal pharynx, no angioedema, normal voice Neck: full range of motion, supple/symm/no masses Respiratory: chest non-tender, lungs clear, normal breath sounds, speaking full sentences Cardiovascular #1: regular rate, rhythm, no edema Cardiovascular #2: 2+ carotid (R), 2+ carotid (L), 2+ radial (R), 2+ radial (L), 2+ dorsalis pedis (R), 2+ dorsalis pedis (L) Gastrointestinal: normal bowel sounds, soft, non-distended, no guarding, no rebound, other - Pain out of proportion to exam. Pulsatile mass felt in epigastric region. No rebound or guarding or distention Rectal: deferred Genitourinary: normal inspection, no CVA tenderness Musculoskeletal: back normal, normal range of motion, gait/station normal, non- tender Neurologic: alert, motor strength/tone normal, oriented x3, sensory intact, responsive, speech normal Psychiatric: judgement/insight normal, memory normal, mood/affect normal, no suicidal/homicidal ideation Lymphatic: no adenopathy Medical Decision Making Diagnostic Impression: Primary Impression: Hypertensive urgency ER Course CTA chest abd pel: IMPRESSION: 1. No pulmonary embolism. No aortic dissection 2. No acute abnormality definitively identified to account for patient presentation. 3. Minimal posterior segment left upper lobe bronchiectasis could represent chronic infection. 4. Advanced bilateral glenohumeral osteoarthritis. EKG: NSR, no ischemia, intervals WNL. No ectopy. Rate 89 bpm Rhythm strip: patient monitored for arrhythmias - no malignant dysrhythmias, runs of PVCs, nor pauses noted Laboratory Tests Test 08/13/20 00:42 White Blood Count 7.2 K/UL (4.8-10.8) Red Blood Count 4.35 M/UL (4.20-5.40) Hemoglobin 13.1 G/DL (12.0-16.0) Hematocrit 40.2 % (37.0-47.0) Mean Corpuscular Volume 93 FL (80-99) Mean Corpuscular Hemoglobin 30.1 PG (27.0-31.0) Mean Corpuscular Hemoglobin Concent 32.6 G/DL (32.0-36.0) Red Cell Distribution Width 13.4 % (11.6-14.8) Platelet Count 205 K/UL (150-450) Mean Platelet Volume 8.3 FL (6.5-10.1) Neutrophils (%) (Auto) 69.0 % (45.0-75.0) Lymphocytes (%) (Auto) 26.5 % (20.0-45.0) Monocytes (%) (Auto) 3.4 % (1.0-10.0) Eosinophils (%) (Auto) 0.2 % (0.0-3.0) Basophils (%) (Auto) 0.8 % (0.0-2.0) Urine Color Pale yellow Urine Appearance Clear Urine pH 7 (4.5-8.0) Urine Specific [place] 1.005 (1.005-1.035) Urine Protein 2+ (NEGATIVE) H Urine Glucose (UA) Negative (NEGATIVE) Urine Ketones Negative (NEGATIVE) Urine Blood 1+ (NEGATIVE) H Urine Nitrite Negative (NEGATIVE) Urine Bilirubin Negative (NEGATIVE) Urine Urobilinogen Normal MG/DL (0.0-1.0) Urine Leukocyte Esterase Negative (NEGATIVE) Urine RBC 0-2 /HPF (0 - 2) Urine WBC 0-2 /HPF (0 - 2) Urine Squamous Epithelial Cells None /LPF (NONE/OCC) Urine Bacteria None /HPF (NONE) Sodium Level 136 MMOL/L (136-145) Potassium Level 4.3 MMOL/L (3.5-5.1) Chloride Level 101 MMOL/L (98-107) Carbon Dioxide Level 26 MMOL/L (21-32) Anion Gap 9 mmol/L (5-15) Blood Urea Nitrogen 21 mg/dL (7-18) H Creatinine 1.0 MG/DL (0.55-1.30) Estimated Glomerular Filtration Rate 52.2 mL/min (>60) Glucose Level 113 MG/DL (74-106) H Calcium Level 9.3 MG/DL (8.5-10.1) Total Bilirubin 0.8 MG/DL (0.2-1.0) Aspartate Amino Transferase (AST) 27 U/L (15-37) Alanine Aminotransferase (ALT) 16 U/L (12-78) Alkaline Phosphatase 88 U/L (46-116) Troponin I 0.009 ng/mL (0.000-0.056) Total Protein 8.0 G/DL (6.4-8.2) Albumin 3.8 G/DL (3.4-5.0) Globulin 4.2 g/dL Albumin/Globulin Ratio 0.9 (1.0-2.7) L Lipase 137 U/L (73-393) 89-year-old female here with diffuse pain and hypertension. Patient was hypertensive on arrival to the emergency department with a blood pressure of around 215/115. She was given IV hydralazine and had improvement in her blood pressure but required another dose later in her stay in the emergency department. She is complaining of diffuse pain that was burning mainly to her abdomen. Aortic pulse was palpable within her abdomen and she had pain out of proportion to examination. She was given IV morphine. CTA chest abdomen pelvis did not reveal any acute abnormalities such as aortic dissection or AAA. CBC, CMP, troponin, lipase, urinalysis all unremarkable. Patient admitted for hypertensive urgency. Last Vital Signs Date Time Temp Pulse Resp B/P (MAP) Pulse Ox O2 Delivery O2 Flow Rate FiO2 08/13/20 00:16 98.1 98 22 211/105 (140) 95 Room Air Ollie Emanuel M.D. Aug 13, 2020 00:34
[2020-08-13 01:04] LABS: BASOPHILS % (AUTO) 0.8 % (0.0-2.0); EOSINOPHILS % (AUTO) 0.2 % (0.0-3.0); HEMATOCRIT 40.2 % (37.0-47.0); HEMOGLOBIN 13.1 G/DL (12.0-16.0); LYMPHOCYTES % (AUTO) 26.5 % (20.0-45.0); MEAN CORPUSCULAR VOLUME 93 FL (80-99); MONOCYTES % (AUTO) 3.4 % (1.0-10.0); PLATELET COUNT 205 K/UL (150-450); RED BLOOD COUNT 4.35 M/UL (4.20-5.40); RED CELL DISTRIBUTION WIDTH 13.4 % (11.6-14.8); WHITE BLOOD COUNT 7.2 K/UL (4.8-10.8)
[2020-08-13 01:05] LABS: APPEARANCE,URINE CLEAR; BILIRUBIN, URINE NEGATIVE (NEGATIVE); COLOR,URINE PALE YELLOW; GLUCOSE, URINE (UA) NEGATIVE (NEGATIVE); KETONES,URINE NEGATIVE (NEGATIVE); LEUKOCYTE ESTERASE ,URINE NEGATIVE (NEGATIVE); NITRITE,URINE NEGATIVE (NEGATIVE); PH,URINE 7 (4.5-8.0); PROTEIN,URINE 2+ (NEGATIVE); UROBILINOGEN,URINE NORMAL MG/DL (0.0-1.0)
[2020-08-13 01:13] VITALS: BP 180/70
[2020-08-13 01:15] LABS: CALCIUM 9.3 MG/DL (8.5-10.1); POTASSIUM 4.3 MMOL/L (3.5-5.1)
[2020-08-13 01:20] LABS: ALBUMIN 3.8 G/DL (3.4-5.0); ALBUMIN/GLOBULIN RATIO 0.9 (1.0-2.7); BILIRUBIN,TOTAL 0.8 MG/DL (0.2-1.0)
--- NOTE | 2020-08-13 01:43 | NUR ---
ED Nurse Note: Pt's daughter went home. Her phone number is [phone]. Pt is resting.
--- NOTE | 2020-08-13 01:53 | NUR ---
ED Nurse Note: Assisted pt to bathroom. Pt is able to ambulate to bathroom with x1 assist. Called pt's daughter, Taylor, at [phone], for verbal consent for CT with contrast. SHUBHAM Quintanilla cosigned consemt.
[2020-08-13 02:45] VITALS: BP 193/75
--- NOTE | 2020-08-13 02:45 | NUR ---
ED Nurse Note: Pt returned from CT. Ambulated pt from bathroom back to room. Warm blanket provided.
--- NOTE | 2020-08-13 03:11 | Diagnostic Imaging Report ---
EXAM: CT Angiography Chest With Intravenous Contrast CLINICAL HISTORY: PAIN TECHNIQUE: Axial computed tomographic angiography images of the chest with intravenous contrast. CTDI is 3.5 mGy and DLP is 217.1 mGy-cm. One or more of the following dose reduction techniques were used: automated exposure control, adjustment of the mA and/or kV according to patient size, use of iterative reconstruction technique. MIP reconstructed images were created and reviewed. Coronal and sagittal reformatted images were created and reviewed. Axial reformatted images were created and reviewed. COMPARISON: No relevant prior studies available. FINDINGS: Pulmonary arteries: No pulmonary embolism. Aorta: No acute findings. No thoracic aortic aneurysm. Lungs: Normal posterior segment left upper lobe bronchiectasis could represent chronic infection. No mass. Pleural space: Unremarkable. No significant effusion. No pneumothorax. Heart: Unremarkable. No cardiomegaly. No significant pericardial effusion. No evidence of RV dysfunction. Bones/joints: Advanced bilateral glenohumeral osteoarthritis. No acute fracture. No dislocation. Soft tissues: Unremarkable. Lymph nodes: Unremarkable. No enlarged lymph nodes. Other findings: Otherwise no acute abnormality seen. IMPRESSION: 1. No pulmonary embolism. 2. No acute abnormality definitively identified to account for patient presentation. 3. Minimal posterior segment left upper lobe bronchiectasis could represent chronic infection. 4. Advanced bilateral glenohumeral osteoarthritis. EXAM: CT Abdomen and Pelvis With Intravenous Contrast CLINICAL HISTORY: PAIN TECHNIQUE: Axial computed tomographic images of the abdomen and pelvis with intravenous contrast. CTDI is 3.5 mGy and DLP is 217.1 mGy-cm. One or more of the following dose reduction techniques were used: automated exposure control, adjustment of the mA and/or kV according to patient size, use of iterative reconstruction technique. Coronal and sagittal reformatted images were created and reviewed. Axial reformatted images were created and reviewed. COMPARISON: No relevant prior studies available. FINDINGS: VASCULATURE: Aorta: No acute findings. No abdominal aortic aneurysm. No dissection. Celiac trunk and mesenteric arteries: No acute findings. No occlusion or significant stenosis. Renal arteries: No acute findings. No occlusion or significant stenosis. Iliac arteries: No acute findings. No occlusion or significant stenosis. Lung bases: Unremarkable. No mass. No consolidation. ABDOMEN: Liver: Benign left hepatic lobe segment II measures 3.5 cm, no follow- up. Otherwise unremarkable liver. Gallbladder and bile ducts: Cholecystectomy with biliary ductal prominence likely within normal limits following cholecystectomy; correlate with presentation. Pancreas: Unremarkable. No ductal dilation. No mass. Spleen: Unremarkable. No splenomegaly. Adrenals: Unremarkable. No mass. Kidneys and ureters: Right renal atrophy. No hydronephrosis. Stomach and bowel: Prominent colonic stool burden could be incidental or could be a cause for pain. No obstruction. No mucosal thickening. PELVIS: Appendix: No findings to suggest acute appendicitis. Bladder: Unremarkable. No mass. Reproductive: Unremarkable as visualized. ABDOMEN and PELVIS: Intraperitoneal space: Unremarkable. No significant fluid collection. No free air. Bones/joints: Osteopenia and age-related degenerative spine findings. No acute fracture. No dislocation. Soft tissues: Unremarkable. Lymph nodes: Unremarkable. No enlarged lymph nodes. IMPRESSION: 1. Prominent colonic stool burden could be incidental or could be a cause for pain. 2. No acute abnoramlity seen. 3. Cholecystectomy with biliary ductal prominence likely within normal limits following cholecystectomy; correlate with presentation. 4. Right renal atrophy. 5. Osteopenia and age-related degenerative spine findings.
--- NOTE | 2020-08-13 04:15 | NUR ---
TRANSFER TO FLOOR: Patient transferred to [facility] as ordered, per Dr. Emanuel. Report given to SHUBHAM Loza. Belongings sent to room with pt; documented on belongings inventory. Informed Taylor of transfer.
--- NOTE | 2020-08-13 04:20 | NUR ---
NURSE NOTES: Patient received from SHUBHAM Johnson. Patient arrived on telemetry with no issues. Patient is awake, alert and oriented x 3. Patient is on room air with no signs of acute respiratory distress noted. Patient skin noted to be intact. Patient appears to be comfortable and has no complaints. Able to ambulate with assist. Patient has a left 20 AC saline locked. Bed is in the lowest position, call light within reach. Will continue to monitor.
[2020-08-13] MEDS ORDERED: HydrALAZINE 25mg tab ORAL PRN (05:30)
[2020-08-13] MEDS ORDERED: ALPRAZolam 0.5mg tab ORAL SCH (05:30)
[2020-08-13] MEDS ORDERED: DiphenhydrAMINE 50mg/ml Inj IVP PRN (05:30)
[2020-08-13] MEDS ORDERED: Milk of Magnesia 30ml Ud ORAL PRN (05:30)
--- NOTE | 2020-08-13 07:44 | NUR ---
NURSE HAND-OFF REPORT: Important Events on Shift:[Admission] Patient Status: [Stable] Diet: [Cardiac diet, soft easy chew] Pending Orders: [] Pending Results/Labs:[] Pending MD notification:[] Latest Vital Signs: Temperature 98.6 , Pulse 50 , B/P 158 /72 , Respiratory Rate 23 , O2 SAT 96 , Room Air, O2 Flow Rate . Vital Sign Comment: [] EKG Rhythm: Sinus Rhythm Rhythm change?: N MD Notified?: - MD Response: Latest Hodges Fall Score: 35 Fall Risk: Medium Risk Safety Measures: Call light , Bed Alarm , Side Rails Side Rails x2, Bed position . Fall Precautions: Report given to [SHUBHAM Ruvalcaba].
--- NOTE | 2020-08-13 07:48 | History & Physical ---
History and Physical History & Physicial History and Physical HPI 89-year-old woman with previous history of Hypertension and Dementia admitted with diffuse pain. Prior admissions with hypertensive urgency. Has some right upper quadrant abdominal pain. Has been feeling this for 2 weeks but it suddenly got worse tonight. Denies headache, vision change, fevers, chills, chest pain, palpitations, back pain, nausea, vomiting. Some diarrhea the past few days. On arrival to the emergency department blood pressure was 215/115,improved with IV hydralazine. CTA chest abdomen pelvis did not reveal any acute abnormalities such as aortic dissection or AAA. CBC, CMP, troponin, lipase, urinalysis all unremarkable. . Allergies: Coded Allergies: PENICILLINS (Unverified Allergy, Unknown, 12/06/19) Past Medical History: Hypertension, Hypertensive Heart Disease, Dementia Social History: NC Family History: NC All Other Systems: negative except mentioned in HPI Physical Exam Vital Signs noted Date Time Temp Pulse Resp B/P (MAP) Pulse Ox O2 Delivery O2 Flow Rate FiO2 08/13/20 00:16 98.1 98 22 211/105 (140) 95 Room Air General Appearance: no apparent distress, alert, non-toxic Head: normocephalic, atraumatic Eyes: bilateral eye normal inspection, bilateral eye PERRL ENT: hearing grossly normal, normal pharynx, moist mm, no LN Neck: full range of motion, supple/symm/no masses Respiratory: chest non-tender, lungs clear, normal breath sounds, speaking full sentences Cardiovascular: regular rate, rhythm, HS1/HS2 normal,no edema, pulses intact Gastrointestinal: normal bowel sounds, soft, non-distended, no guarding, no rebound, No rebound or guarding or distention Genitourinary: normal inspection, no CVA tenderness Musculoskeletal: back normal, normal range of motion, gait/station normal, non- tender Neurologic: alert, motor strength/tone normal, oriented x3, sensory intact, responsive, speech normal Medical Decision Making Impression: Hypertensive urgency Prior h/o Hypertension HHD - troponin NR Upper lobe bronchiectasis Dementia Generalbody and abdominal pain Plan: PRN clonidine/hydralazine BPmeds SCIENTIFIC PUBLICATIONS EDITOR meds Analgesia Monitor labs PPX O2PRN Cardiology Consult Laboratory Tests noted Test 08/13/20 00:42 White Blood Count 7.2 K/UL (4.8-10.8) Red Blood Count 4.35 M/UL (4.20-5.40) Hemoglobin 13.1 G/DL (12.0-16.0) Hematocrit 40.2 % (37.0-47.0) Mean Corpuscular Volume 93 FL (80-99) Mean Corpuscular Hemoglobin 30.1 PG (27.0-31.0) Mean Corpuscular Hemoglobin Concent 32.6 G/DL (32.0-36.0) Red Cell Distribution Width 13.4 % (11.6-14.8) Platelet Count 205 K/UL (150-450) Mean Platelet Volume 8.3 FL (6.5-10.1) Neutrophils (%) (Auto) 69.0 % (45.0-75.0) Lymphocytes (%) (Auto) 26.5 % (20.0-45.0) Monocytes (%) (Auto) 3.4 % (1.0-10.0) Eosinophils (%) (Auto) 0.2 % (0.0-3.0) Basophils (%) (Auto) 0.8 % (0.0-2.0) Urine Color Pale yellow Urine Appearance Clear Urine pH 7 (4.5-8.0) Urine Specific [place] 1.005 (1.005-1.035) Urine Protein 2+ (NEGATIVE) H Urine Glucose (UA) Negative (NEGATIVE) Urine Ketones Negative (NEGATIVE) Urine Blood 1+ (NEGATIVE) H Urine Nitrite Negative (NEGATIVE) Urine Bilirubin Negative (NEGATIVE) Urine Urobilinogen Normal MG/DL (0.0-1.0) Urine Leukocyte Esterase Negative (NEGATIVE) Urine RBC 0-2 /HPF (0 - 2) Urine WBC 0-2 /HPF (0 - 2) Urine Squamous Epithelial Cells None /LPF (NONE/OCC) Urine Bacteria None /HPF (NONE) Sodium Level 136 MMOL/L (136-145) Potassium Level 4.3 MMOL/L (3.5-5.1) Chloride Level 101 MMOL/L (98-107) Carbon Dioxide Level 26 MMOL/L (21-32) Anion Gap 9 mmol/L (5-15) Blood Urea Nitrogen 21 mg/dL (7-18) H Creatinine 1.0 MG/DL (0.55-1.30) Estimated Glomerular Filtration Rate 52.2 mL/min (>60) Glucose Level 113 MG/DL (74-106) H Calcium Level 9.3 MG/DL (8.5-10.1) Total Bilirubin 0.8 MG/DL (0.2-1.0) Aspartate Amino Transferase (AST) 27 U/L (15-37) Alanine Aminotransferase (ALT) 16 U/L (12-78) Alkaline Phosphatase 88 U/L (46-116) Troponin I 0.009 ng/mL (0.000-0.056) Total Protein 8.0 G/DL (6.4-8.2) Albumin 3.8 G/DL (3.4-5.0) Globulin 4.2 g/dL Albumin/Globulin Ratio 0.9 (1.0-2.7) L Lipase 137 U/L (73-393) CTA chest abd pelvis: IMPRESSION: 1. No pulmonary embolism. No aortic dissection 2. No acute abnormality definitively identified to account for patient presentation. 3. Minimal posterior segment left upper lobe bronchiectasis could represent chronic infection. 4. Advanced bilateral glenohumeral osteoarthritis. EKG: NSR, no ischemia, intervals WNL. No ectopy. Rate 89 bpm Rhythm strip: patient monitored for arrhythmias - no malignant dysrhythmias, runs of PVCs, nor pauses noted Hayden Nagy MD Aug 13, 2020 07:48
[2020-08-13 08:00] VITALS: BP 160/71
--- NOTE | 2020-08-13 09:00 | NUR ---
NURSE NOTES: RECIEVED PT. AWAKE AND ALERT OOB W/ NO S/S OF DISTRESS NOTED.ASSISTED TO THE REST ROOM VOIDED NO C/O ABD. PAIN @ THIS TIME.SPEAK WOLOF W/ LIMITED MALTESE.CALL LIGHT WITHIN REACH.INSTRUCTED TO CALL FOR ANY ASSISTANCE.WILL CONTINUE W/ PLAN OF CARE.
[2020-08-13] MEDS: Metoprolol Tartrate 12.5mg TAB ORAL SCH ×2 (10:09→20:37)
[2020-08-13] MEDS: Docusate Sod/Senna tab ORAL SCH ×2 (10:10→17:16)
[2020-08-13] MEDS: Losartan 50mg tab ORAL SCH (10:11)
[2020-08-13 11:21] LABS: CALCIUM 9.3 MG/DL (8.5-10.1); POTASSIUM 3.8 MMOL/L (3.5-5.1)
[2020-08-13 11:22] LABS: BASOPHILS % (AUTO) 1.7 % (0.0-2.0); EOSINOPHILS % (AUTO) 2.4 % (0.0-3.0); HEMOGLOBIN 12.4 G/DL (12.0-16.0); LYMPHOCYTES % (AUTO) 25.4 % (20.0-45.0); MEAN CORPUSCULAR VOLUME 94 FL (80-99); MONOCYTES % (AUTO) 8.4 % (1.0-10.0); PLATELET COUNT 192 K/UL (150-450); RED BLOOD COUNT 4.13 M/UL (4.20-5.40); RED CELL DISTRIBUTION WIDTH 13.4 % (11.6-14.8); WHITE BLOOD COUNT 5.4 K/UL (4.8-10.8)
[2020-08-13 12:00] VITALS: BP 150/77
--- NOTE | 2020-08-13 13:10 | NUR ---
NURSE NOTES: Received report from SHUBHAM Ruvalcaba. Patient Aox2, forgetful. Patient on room air, steady gait. Patient left AC 20G, asymptomatic, patent, intact. SR with HR 76, no active s/s cardiac, respiratory distress noticed at this time. Patient denies acute pain at this time. Bed in lowest position, side rails upx3, call light within reach, bed alarm on, Will continue to monitor.
[2020-08-13 16:00] VITALS: BP 145/98
[2020-08-13 17:22] LABS: APPEARANCE,URINE CLEAR; BILIRUBIN, URINE NEGATIVE (NEGATIVE); GLUCOSE, URINE (UA) NEGATIVE (NEGATIVE); KETONES,URINE NEGATIVE (NEGATIVE); LEUKOCYTE ESTERASE ,URINE 1+ (NEGATIVE); NITRITE,URINE NEGATIVE (NEGATIVE); PH,URINE 6 (4.5-8.0); PROTEIN,URINE 2+ (NEGATIVE); UROBILINOGEN,URINE 1 MG/DL (0.0-1.0)
[2020-08-13 17:23] LABS: COLOR,URINE YELLOW
--- NOTE | 2020-08-13 19:05 | NUR ---
NURSE HAND-OFF REPORT: Important Events on Shift: NA Patient Status: stable Diet: cardiac mech chopped Pending Orders: na Pending Results/Labs:na Pending MD notification:na Latest Vital Signs: Temperature 98.7 , Pulse 77 , B/P 145 /98 , Respiratory Rate 19 , O2 SAT 96 , Room Air, O2 Flow Rate . Vital Sign Comment: stable EKG Rhythm: Sinus Rhythm Rhythm change?: N MD Notified?: - MD Response: Latest Hodges Fall Score: 35 Fall Risk: Medium Risk Safety Measures: Call light Within Reach, Bed Alarm Zone 2, Side Rails Side Rails x2, Bed position Low and Locked. Fall Precautions: Yellow Socks Report given to SHUBHAM Loza.
--- NOTE | 2020-08-13 19:10 | NUR ---
NURSE NOTES: Patient received from SHUBHAM Richardson. Patient is awake, alert and oriented x 3. Patient is on room air with no signs of acute respiratory distress noted. Patient has an IV on his left AC saline lock. Patient noted to be able to walk with a steady gait. Bed is in the lowest position and locked, call light within reach. Will continue to monitor.
[2020-08-13 20:00] VITALS: BP 165/74
[2020-08-13] MEDS ORDERED: Donepezil 5mg Tab ORAL SCH (21:00)
--- NOTE | 2020-08-13 22:00 | NUR ---
NURSE NOTES: Patient very combative and agitated. Trying to get out of bed and lay on the floor. Contacted and left a message to Dr. Bradley, awaiting for call back.
--- NOTE | 2020-08-13 23:00 | NUR ---
NURSE NOTES: Contacted Dr. Nagy regarding patient's agitated and combative behavior. Patient has been trying to get out of bed and still attempting to lay on the floor. Awaiting for call back.
[2020-08-13] MEDS: Hydromorphone 0.5mg/0.5ml inj IVP PRN (23:33)
--- NOTE | 2020-08-14 00:50 | NUR ---
NURSE NOTES: Contacted and left a message to Dr. Matthews regarding patient's combative behavior with the staff. Also notified Dr. Matthews that patient complains of nausea and vomiting. Awaiting for call back.
--- NOTE | 2020-08-14 01:59 | Consultation ---
DATE OF CONSULTATION: 08/13/2020 CARDIOLOGY CONSULTATION CONSULTING PHYSICIAN: Hayden Matthews M.D. REQUESTING PHYSICIAN: Justin Bradley M.D. REASON FOR CONSULTATION: Hypertensive urgency. HISTORY OF PRESENT ILLNESS: This 89-year-old Pashto female presented to the hospital with abdominal pain that has been progressing for the past 2 weeks. Symptoms apparently worsened today. The patient did not have any other symptoms. A missile technician was used for data. Apparently, there has been some diarrhea however, but no nausea, vomiting, fevers, or chills. The patient was seen in the emergency room. Blood pressure up to 211 systolic was recorded. IV hydralazine was given. I have been asked to assist with cardiovascular care. PAST MEDICAL HISTORY: Cerebrovascular disease with dementia and hypertension. MEDICATIONS: Reviewed and reconciled. ALLERGIES: Penicillin. FAMILY HISTORY: Not known. SOCIAL HISTORY: Denies smoking or alcohol use. REVIEW OF SYSTEMS: Cannot be obtained due to language barrier and pertinent data from missile technician as outlined above. PHYSICAL EXAMINATION: VITAL SIGNS: Initial blood pressure 211/105, subsequent blood pressure 145/98, heart rate 103, respiratory rate 19, afebrile, and oxygen saturation on room air 96%. HEENT: Normocephalic and atraumatic. Conjunctivae pink. Oropharynx clear. Fundi not visualized. NECK: No jugular venous distention. No bruits. CARDIAC: Regular rhythm and rate. Normal S1, S2 with a fourth heart sound and a 1/6 systolic murmur at apex. ABDOMEN: Soft. EXTREMITIES: No edema. NEUROLOGIC: Reveals no focal deficits. LABORATORY AND DIAGNOSTIC DATA: Urinalysis with no active sediment. Sodium 136, potassium 4.3, bicarb 26, BUN 21, creatinine 1, and glucose 113. Lipase is 137. TSH is 2.5. White count is 7.2 and hemoglobin 13.1. EKG reveals sinus rhythm, no acute ST-T wave abnormalities. CT angiogram of the abdomen, pelvis, and chest revealed no pulmonary embolic event. No signs of aortic dissection. Left upper lobe bronchiectasis. No acute abdominal findings. IMPRESSION: 1. Hypertensive urgency. 2. Abdominal pain of unclear etiology. 3. Possible bronchiectasis. 4. Cerebrovascular disease with dementia. PLAN: 1. Pain control. 2. Stepwise titration of antihypertensives. 3. Continue cardiac monitoring. 4. Proton pump inhibitor. 5. Hold subcutaneous heparin until blood pressure control is achieved. Hayden Matthews M.D. DR: RUPERT JOB#: [id number] CC:
[2020-08-14 04:00] VITALS: BP 162/72
[2020-08-14] MEDS: Hydromorphone 0.5mg/0.5ml inj IVP PRN ×2 (06:05→09:06)
--- NOTE | 2020-08-14 07:30 | NUR ---
NURSE NOTES: received patient report from shabana valdez. patient is on bed asleep. not in acute distress. no acute events reported last night. nsr on the monitor. tolerates diet. will follow plan fo care.
--- NOTE | 2020-08-14 07:47 | NUR ---
NURSE HAND-OFF REPORT: Important Events on Shift:[Patient started being combative with the staff. Notified Kirk Lo and Yakov regarding the patient's status.] Patient Status: [Stable] Diet: [Cardiac diet mechanical soft chopped] Pending Orders: [] Pending Results/Labs:[] Pending MD notification:[] Latest Vital Signs: Temperature 98.3 , Pulse 61 , B/P 162 /72 , Respiratory Rate 18 , O2 SAT 96 , Room Air, O2 Flow Rate . Vital Sign Comment: [] EKG Rhythm: Sinus Rhythm Rhythm change?: N MD Notified?: - MD Response: Latest Hodges Fall Score: 35 Fall Risk: Medium Risk Safety Measures: Call light Within Reach, Bed Alarm Zone 2, Side Rails Side Rails x2, Bed position Low and Locked. Fall Precautions: Yellow Socks Report given to [SHUBHAM Damon].
[2020-08-14 08:00] VITALS: BP 128/57
[2020-08-14] MEDS: Metoprolol Tartrate 12.5mg TAB ORAL SCH ×2 (08:08→20:03)
[2020-08-14] MEDS: Docusate Sod/Senna tab ORAL SCH ×2 (08:08→17:06)
[2020-08-14] MEDS: Losartan 50mg tab ORAL SCH (08:09)
--- NOTE | 2020-08-14 08:29 | General Progress Note ---
Subjective Allergies: Coded Allergies: PENICILLINS (Unverified Allergy, Unknown, 12/06/19) Uncoded Allergies: PENECILLIN (Allergy, Unknown, 04/14/20) Subjective care noted alert Objective Last 24 Hour Vital Signs Date Time Temp Pulse Resp B/P (MAP) Pulse Ox O2 Delivery O2 Flow Rate FiO2 08/14/20 08:09 128/57 08/14/20 08:09 63 128/57 08/14/20 08:08 63 128/57 08/14/20 06:35 98.3 08/14/20 04:11 162/72 08/14/20 04:00 61 08/14/20 04:00 98.8 83 18 162/72 (102) 96 08/14/20 00:03 98.3 08/14/20 00:00 60 08/13/20 21:00 Room Air 08/13/20 20:37 75 165/74 08/13/20 20:00 98.3 74 18 165/74 (104) 96 08/13/20 20:00 73 08/13/20 16:00 77 08/13/20 16:00 98.7 103 19 145/98 (114) 96 08/13/20 12:00 76 08/13/20 12:00 96.6 101 22 150/77 (101) 98 08/13/20 10:11 160/71 08/13/20 10:10 101 160/71 08/13/20 10:09 101 160/71 08/13/20 09:00 Room Air Intake and Output 08/13/20 08/14/20 19:00 07:00 Intake Total 100 ml 120 ml Balance 100 ml 120 ml Intake Oral 100 ml 120 ml # Voids 2 3 Laboratory Tests 08/13/20 10:35: White Blood Count 5.4, Red Blood Count 4.13L, Hemoglobin 12.4, Hematocrit 39.0, Mean Corpuscular Volume 94, Mean Corpuscular Hemoglobin 30.1, Mean Corpuscular Hemoglobin Concent 31.8L, Red Cell Distribution Width 13.4, Platelet Count 192, Mean Platelet Volume 7.8, Neutrophils (%) (Auto) 62.0, Lymphocytes (%) (Auto) 25.4, Monocytes (%) (Auto) 8.4, Eosinophils (%) (Auto) 2.4, Basophils (%) (Auto) 1.7, Sodium Level 140, Potassium Level 3.8, Chloride Level 104, Carbon Dioxide Level 30, Anion Gap 6, Blood Urea Nitrogen 20H, Creatinine 1.0, Estimat Glomerular Filtration Rate 52.2, Glucose Level 119H, Calcium Level 9.3, Thyroid Stimulating Hormone (TSH) 2.575 08/13/20 17:15: Urine Color Yellow, Urine Appearance Clear, Urine pH 6, Urine Specific [place] 1.005, Urine Protein 2+H, Urine Glucose (UA) Negative, Urine Ketones Negative, Urine Blood Negative, Urine Nitrite Negative, Urine Bilirubin Negative, Urine Urobilinogen 1H, Urine Leukocyte Esterase 1+H, Urine RBC 0-2, Urine WBC 0-2, Urine Squamous Epithelial Cells Occasional, Urine Bacteria ModerateH Height (Feet): 4 Height (Inches): 9.00 Weight (Pounds): 98 Objective WDWN NAD clear breath sounds bilaterally without rhonchi or wheeze [id number] without MRG NABS nontender no HSM no CCE nonfocal frail Assessment/Plan Assessment/Plan: Impression: Hypertensive urgency Prior h/o Hypertension HHD - troponin NR Upper lobe bronchiectasis Dementia Generalbody and abdominal pain Plan: PRN clonidine/hydralazine BPmeds Analgesia Monitor labs PPX PT eval Cardiology Clearance impression, plan, and exam edited and reviewed in detail care discussed with Justin Lopez MD Aug 14, 2020 08:28
[2020-08-14] MEDS ORDERED: LORazepam Inj 2mg/ml 1ml IV PRN (09:00)
[2020-08-14] MEDS ORDERED: HYDROmorphone 1mg/ml Carpuject IVP PRN (11:10)
[2020-08-14 11:53] VITALS: BP 124/42
[2020-08-14 16:00] VITALS: BP 135/70
[2020-08-14] MEDS ORDERED: Hydromorphone 0.5mg/0.5ml inj IVP PRN (16:00)
[2020-08-14] MEDS: ALPRAZolam 0.5mg tab ORAL PRN ×2 (16:18→16:36)
--- NOTE | 2020-08-14 17:18 | NUR ---
Speech Pathology Note (Bedside Dysphagia Evaluation) Brief note: Ms. Terry is an 89 year old female re-admitted hypertension in setting of diffused pain on 08/13/2020. CT C/A/P completed. The chest is relatively clear without any indication of aspiration pneumonia. The mid/proximal esophagus was moderately dilated. I reviewed and labs which were grossly unremarkable. Last 24 hours vital signs were grossly unremarkable and stable. PMH: CVA dementia Findings at her bedside: She received her dinner consists with chicken vegetable etc. She asked me to get her upper denture. She independently placed her upper denture. She ate chicken, vegetable and drinks. She tolerated well without clinical concerns. Interpretation: 1. Functional Swallow 2. Aspiration precaution in setting moderately dilated esophagus without aspiration pneumonia Plan: 1. Regular diet and thin liquid 2. Eat up right Kayla Jung
--- NOTE | 2020-08-14 19:30 | NUR ---
NURSE NOTES: Received report & pt from Marisol Lozada RN. Pt up in chair, a&ox2-3, macedonian speaking only, in room air. No s/s of acute distress & no c/o pain at this time. IV site intact & S/L'd. Call light within reach. Will continue to monitor.
[2020-08-14 20:00] VITALS: BP 133/48
--- NOTE | 2020-08-14 22:14 | Consultation ---
DATE OF CONSULTATION: 08/14/2020 HISTORY OF PRESENT ILLNESS: This is an 89-year-old female with a history of multiple medical issues including hypertension and dementia, who has been admitted to the hospital due to pain. The patient is a poor historian. She has cognitive impairment and constantly coming out of the room and sitting in the hallway, easily agitated. The patient received benzodiazepines with no improvement in her symptoms. The patient is also having difficulty sleeping and sundowning. PAST PSYCHIATRIC HISTORY: Dementia, is on benazepril and anxiety disorder, on benzodiazepines. PAST MEDICAL HISTORY: Significant for UTI, hypertension, and possible COVID-19. ALLERGIES: Penicillin. SUBSTANCE ABUSE HISTORY: No known history of illicit drug use or alcohol use. SOCIAL HISTORY: The patient resides in a fdc. MENTAL STATUS EXAMINATION: Awake and disoriented to date. Mood is anxious. Affect is blunted. Thought process is concrete. Thought content, no suicidal or homicidal ideation. Cognition is impaired. Insight and judgment is impaired. ASSESSMENT: [place] I Dementia. Anxiety disorder. Psychotic disorder. [place] II Deferred. [place] III As above. [place] IV Low. [place] V 20. PLAN: 1. We will start the patient on Seroquel p.r.n. and . 2. Provide the patient with reality orientation and supportive therapy. Sanjay Zhou M.D. DR: GERONIMO JOB#: [id number] CC:
[2020-08-15] VITALS: BP 115/68
--- NOTE | 2020-08-15 | NUR ---
NURSE NOTES: Pt asleep. In no acute distress. Bed alarm on.
--- NOTE | 2020-08-15 01:47 | Cardiology Progress Note ---
Subjective DATE OF SERVICE: Aug 15, 2020 Episodes of agitation and combative behavior. BP parameters improved Monitor: sinus and sinus bradycardia Objective Last 24 Hour Vital Signs Date Time Temp Pulse Resp B/P (MAP) Pulse Ox O2 Delivery O2 Flow Rate FiO2 08/15/20 00:00 58 08/15/20 00:00 98.8 64 16 115/68 (84) 94 08/14/20 21:00 Room Air 08/14/20 20:03 55 133/48 08/14/20 20:00 66 08/14/20 20:00 99.0 55 16 133/48 (76) 97 08/14/20 16:00 98.9 77 18 135/70 (91) 99 08/14/20 16:00 64 08/14/20 12:00 64 08/14/20 11:53 96.5 65 18 124/42 (69) 95 08/14/20 10:38 63 18 128/57 97 08/14/20 10:08 63 18 128/57 97 08/14/20 08:55 Room Air 08/14/20 08:09 128/57 08/14/20 08:09 63 128/57 08/14/20 08:08 63 128/57 08/14/20 08:00 70 08/14/20 08:00 97.5 63 18 128/57 (80) 97 08/14/20 06:35 98.3 08/14/20 04:11 162/72 08/14/20 04:00 61 08/14/20 04:00 98.8 83 18 162/72 (102) 96 HEENT: normal ENT inspection RHYTHM: NSR, SB LUNGS: lungs clear bilaterally CARDIAC: normal rate, regular rhythm, normal S1 and S2, gallop/S4 ABDOMEN: normal bowel sounds, non tender, soft, no mass EXTREMITIES: normal range of motion, non-tender, No edema, other - mod cognitive deficit Microbiology Date/Time Source Procedure Growth Status 08/13/20 17:15 Urine,Clean Catch Urine Culture - Preliminary NO GROWTH Resulted Assessment/Plan Assessment/Plan Hypertensive urgency resolved Hypertensive heart and renal disease Dementia with agitation Simplify cardiovasc meds Psych rx Recheck labs DC planning - consider [facility] Hayden Matthews MD Aug 15, 2020 01:47
[2020-08-15 04:00] VITALS: BP 105/57
--- NOTE | 2020-08-15 06:17 | NUR ---
NURSE HAND-OFF REPORT: Important Events on Shift:none Patient Status: stable Diet: cardiac mechanical soft chopped Pending Orders: Venous Duplex Pending Results/Labs:none Pending MD notification:none Latest Vital Signs: Temperature 97.7 , Pulse 50 , B/P 105 /57 , Respiratory Rate 16 , O2 SAT 95 , Room Air, O2 Flow Rate . Vital Sign Comment: none EKG Rhythm: Sinus Bradycardia Rhythm change?: N MD Notified?: N - pt has hx of sinus frederick MD Response: Latest Hodges Fall Score: 35 Fall Risk: Medium Risk Safety Measures: Call light Within Reach, Bed Alarm Zone 2, Side Rails Side Rails x2, Bed position Low and Locked. Fall Precautions: Yellow Socks Report given to Mary Morales RN.
[2020-08-15 06:41] LABS: BASOPHILS % (AUTO) 2.3 % (0.0-2.0); LYMPHOCYTES % (AUTO) 32.2 % (20.0-45.0); MEAN CORPUSCULAR VOLUME 94 FL (80-99); MONOCYTES % (AUTO) 7.3 % (1.0-10.0); NEUTROPHILS % (AUTO) 52.2 % (45.0-75.0); PLATELET COUNT 192 K/UL (150-450); RED BLOOD COUNT 4.24 M/UL (4.20-5.40); WHITE BLOOD COUNT 5.7 K/UL (4.8-10.8)
--- NOTE | 2020-08-15 07:00 | NUR ---
NURSE NOTES: Received report from SHUBHAM Freeman. Patient observed to be awake, alert and oriented x2-3 armenian speaking. Patient ambulatory steady gait walking around room. Patient currently on room air, no s/sx of SOB/Distress, no c/o any pain or discomfort. Patient with LAC gauge 20 SL. IV site inplace intact and patent. Bed placed on lowest and locked, call light placed within reach will continue to have frequent visual checks on patient.
[2020-08-15 07:10] LABS: ALBUMIN 3.6 G/DL (3.4-5.0); ALBUMIN/GLOBULIN RATIO 0.9 (1.0-2.7); BILIRUBIN,TOTAL 1.2 MG/DL (0.2-1.0); CALCIUM 9.2 MG/DL (8.5-10.1); CREATININE 1.3 MG/DL (0.55-1.30); POTASSIUM 3.8 MMOL/L (3.5-5.1)
[2020-08-15 07:13] LABS: BILIRUBIN,DIRECT 0.2 MG/DL (0.0-0.3)
[2020-08-15 08:00] VITALS: BP 142/67
--- NOTE | 2020-08-15 08:18 | General Progress Note ---
Subjective Allergies: Coded Allergies: PENICILLINS (Unverified Allergy, Unknown, 12/06/19) Uncoded Allergies: PENECILLIN (Allergy, Unknown, 04/14/20) Subjective care noted alert agitated Objective Last 24 Hour Vital Signs Date Time Temp Pulse Resp B/P (MAP) Pulse Ox O2 Delivery O2 Flow Rate FiO2 08/15/20 04:00 50 08/15/20 04:00 97.7 51 16 105/57 (73) 95 08/15/20 00:00 58 08/15/20 00:00 98.8 64 16 115/68 (84) 94 08/14/20 21:00 Room Air 08/14/20 20:03 55 133/48 08/14/20 20:00 66 08/14/20 20:00 99.0 55 16 133/48 (76) 97 08/14/20 16:00 98.9 77 18 135/70 (91) 99 08/14/20 16:00 64 08/14/20 12:00 64 08/14/20 11:53 96.5 65 18 124/42 (69) 95 08/14/20 10:38 63 18 128/57 97 08/14/20 10:08 63 18 128/57 97 08/14/20 08:55 Room Air Intake and Output 08/14/20 08/15/20 19:00 07:00 Intake Total 570 ml 120 ml Balance 570 ml 120 ml Intake Oral 570 ml 120 ml # Voids 4 3 Laboratory Tests 08/15/20 06:20: White Blood Count 5.7, Red Blood Count 4.24, Hemoglobin 13.0, Hematocrit 40.0, Mean Corpuscular Volume 94, Mean Corpuscular Hemoglobin 30.7, Mean Corpuscular Hemoglobin Concent 32.6, Red Cell Distribution Width 13.0, Platelet Count 192, Mean Platelet Volume 8.7, Neutrophils (%) (Auto) 52.2, Lymphocytes (%) (Auto) 32.2, Monocytes (%) (Auto) 7.3, Eosinophils (%) (Auto) 6.0H, Basophils (%) (Auto) 2.3H, Sodium Level 137, Potassium Level 3.8, Chloride Level 101, Carbon Dioxide Level 29, Anion Gap 7, Blood Urea Nitrogen 20H, Creatinine 1.3, Estimat Glomerular Filtration Rate 38.6, Glucose Level 98, Calcium Level 9.2, Magnesium Level 2.6H, Total Bilirubin 1.2H, Direct Bilirubin 0.2, Aspartate Amino Transf (AST/SGOT) 19, Alanine Aminotransferase (ALT/SGPT) 14, Alkaline Phosphatase 73, Pro-B-Type Natriuretic Peptide 169H, Total Protein 7.4, Albumin 3.6, Globulin 3.8, Albumin/Globulin Ratio 0.9L Height (Feet): 4 Height (Inches): 9.00 Weight (Pounds): 98 Objective WDWN NAD clear breath sounds bilaterally without rhonchi or wheeze [id number] without MRG NABS nontender no HSM no CCE nonfocal frail Assessment/Plan Assessment/Plan: Impression: Hypertensive urgency Prior h/o Hypertension HHD - troponin NR Upper lobe bronchiectasis Dementia Generalbody and abdominal pain Plan: PRN clonidine/hydralazine BPmeds Analgesia Monitor labs PPX PT eval Cardiology Clearance anxiolytics and psych to see dc planning impression, plan, and exam edited and reviewed in detail care discussed with Justin Lopez MD Aug 15, 2020 08:18
[2020-08-15] MEDS: Metoprolol Tartrate 12.5mg TAB ORAL SCH ×2 (08:34→20:35)
[2020-08-15] MEDS: Docusate Sod/Senna tab ORAL SCH ×2 (08:34→17:01)
[2020-08-15 12:00] VITALS: BP 155/74
[2020-08-15 16:00] VITALS: BP 154/72
--- NOTE | 2020-08-15 16:11 | NUR ---
INSURANCE CLINICALS FAXED TO [facility] - CM: Elio henson [id number] [facility] - [phone]
--- NOTE | 2020-08-15 17:40 | Cardiology Report ---
APPROVED REPORT EKG Measurement Heart [id number] <Conclusion> Normal sinus rhythm Nonspecific ST abnormality Abnormal ECG
--- NOTE | 2020-08-15 19:21 | NUR ---
NURSE HAND-OFF REPORT: Important Events on Shift:n/a Patient Status: stable Diet: cardiac mech soft Pending Orders: n.a Pending Results/Labs:n.a Pending MD notification:n.a Latest Vital Signs: Temperature 98.5 , Pulse 72 , B/P 154 /72 , Respiratory Rate 19 , O2 SAT 98 , Room Air, O2 Flow Rate . Vital Sign Comment: stable EKG Rhythm: Sinus Rhythm Rhythm change?: N MD Notified?: N - MD Response: Latest Hodges Fall Score: 35 Fall Risk: Medium Risk Safety Measures: Call light Within Reach, Bed Alarm Zone 2, Side Rails Side Rails x2, Bed position Low and Locked. Fall Precautions: Yellow Socks Report given to SHUBHAM Freeman.
--- NOTE | 2020-08-15 19:28 | NUR ---
NURSE NOTES: Received report & pt from SHUBHAM Reeves. Pt up in chair, a&ox3, belarusian speaking only, in room air. No s/s of acute distress & no c/o pain at this time. IV site intact & S/L'd. Will continue to monitor.
[2020-08-15 20:00] VITALS: BP 163/79
--- NOTE | 2020-08-15 23:20 | Psychiatric Progress Note ---
Psychiatry Progress Note Psychiatry Progress Note Medications Current Medications Medications (Trade) Dose Ordered Sig/Corina Route PRN Reason Start Time Stop Time Status Last Admin Dose Admin Acetaminophen (Tylenol) 650 mg Q6H PRN ORAL For Headache 08/13/20 05:30 09/12/20 05:29 08/14/20 04:13 Clonidine HCl (Catapres Tab) 0.1 mg Q6H PRN ORAL For High Blood Pressure 08/13/20 05:30 11/11/20 05:29 08/14/20 04:11 Diphenhydramine HCl (Benadryl) 25 mg Q6H PRN IVP Itching 08/13/20 05:30 09/12/20 05:29 Hydralazine HCl (Apresoline) 25 mg Q6H PRN ORAL For High Blood Pressure 08/13/20 05:30 11/11/20 05:29 Hydromorphone HCl (Dilaudid) 0.5 mg Q2H PRN IVP Severe Pain (Pain Scale 7-10) 08/14/20 16:00 08/21/20 15:59 Hydroxyzine HCl (Vistaril) 10 mg DAILYPRN PRN ORAL Itching/Pruritis 08/14/20 11:58 09/13/20 11:57 Magnesium Hydroxide (Mom) 30 ml HSPRN PRN ORAL Constipation 08/13/20 05:30 09/12/20 05:29 08/13/20 22:51 Metoprolol Tartrate (Lopressor) 12.5 mg Q12HR ORAL 08/13/20 09:00 11/11/20 08:59 08/15/20 20:35 Ondansetron HCl (Zofran) 4 mg Q6H PRN IVP Nausea & Vomiting 08/14/20 11:00 09/13/20 10:59 08/14/20 14:49 Quetiapine Fumarate (SEROqueL) 25 mg Q6H PRN ORAL Agitation 08/14/20 17:15 09/28/20 17:14 Quetiapine Fumarate (SEROqueL) 50 mg QHS ORAL 08/14/20 21:00 09/28/20 20:59 08/15/20 20:35 Senna/Docusate Sodium (Waleska-Colace) 1 tab TWICE A DAY ORAL 2/21/21 09:00 09/12/20 08:59 08/15/20 17:01 Neurological/Psychiatric: Reports: anxiety, depressed, emotional problems Allergies: Coded Allergies: PENICILLINS (Unverified Allergy, Unknown, 12/06/19) Uncoded Allergies: PENECILLIN (Allergy, Unknown, 04/14/20) Objective Data Height (Feet): 4 Height (Inches): 9.00 Weight (Pounds): 98 General Appearance: WD/WN, alert, severe distress Appearance: well groomed Behavior Mannerisms: poor eye contact Mental Status Exam - Affect: constricted Speech: clear Mental Status Exam - Thought P: tangential, confusion Perceptual Disturbances: auditory Assessment/Plan Assessment/Plan: ASSESSMENT: [place] I Dementia. Anxiety disorder. Psychotic disorder. [place] II Deferred. [place] III As above. [place] IV Low. [place] V 20. PLAN: 1. We will start the patient on Seroquel p.r.n. and . 2. Provide the patient with reality orientation and supportive therapy. Sanjay Zhou MD Aug 15, 2020 23:20
[2020-08-16] VITALS: BP 158/76
--- NOTE | 2020-08-16 01:33 | Cardiology Progress Note ---
Subjective DATE OF SERVICE: Aug 15, 2020 Episodes of agitation and combative behavior persist. BP parameters improved, but still suboptimal at times. Monitor: sinus Objective Last 24 Hour Vital Signs Date Time Temp Pulse Resp B/P (MAP) Pulse Ox O2 Delivery O2 Flow Rate FiO2 08/16/20 00:00 97.9 79 16 158/76 (103) 96 08/16/20 00:00 90 08/15/20 21:00 Room Air 08/15/20 20:35 78 163/79 08/15/20 20:00 92 08/15/20 20:00 98.3 78 16 163/79 (107) 97 08/15/20 16:00 72 08/15/20 16:00 98.5 71 19 154/72 (99) 98 08/15/20 12:00 60 08/15/20 12:00 98.6 65 18 155/74 (101) 97 08/15/20 09:00 Room Air 08/15/20 08:34 60 142/67 08/15/20 08:00 98.7 60 17 142/67 (92) 98 08/15/20 08:00 62 08/15/20 04:00 50 08/15/20 04:00 97.7 51 16 105/57 (73) 95 HEENT: normal ENT inspection RHYTHM: NSR, SB LUNGS: lungs clear bilaterally CARDIAC: normal rate, regular rhythm, normal S1 and S2, gallop/S4 ABDOMEN: normal bowel sounds, non tender, soft, no mass EXTREMITIES: normal range of motion, non-tender, No edema, other - mod cognitive deficit Laboratory Tests Test 08/15/20 06:20 White Blood Count 5.7 K/UL (4.8-10.8) Red Blood Count 4.24 M/UL (4.20-5.40) Hemoglobin 13.0 G/DL (12.0-16.0) Hematocrit 40.0 % (37.0-47.0) Mean Corpuscular Volume 94 FL (80-99) Mean Corpuscular Hemoglobin 30.7 PG (27.0-31.0) Mean Corpuscular Hemoglobin Concent 32.6 G/DL (32.0-36.0) Red Cell Distribution Width 13.0 % (11.6-14.8) Platelet Count 192 K/UL (150-450) Mean Platelet Volume 8.7 FL (6.5-10.1) Neutrophils (%) (Auto) 52.2 % (45.0-75.0) Lymphocytes (%) (Auto) 32.2 % (20.0-45.0) Monocytes (%) (Auto) 7.3 % (1.0-10.0) Eosinophils (%) (Auto) 6.0 % (0.0-3.0) H Basophils (%) (Auto) 2.3 % (0.0-2.0) H Sodium Level 137 MMOL/L (136-145) Potassium Level 3.8 MMOL/L (3.5-5.1) Chloride Level 101 MMOL/L (98-107) Carbon Dioxide Level 29 MMOL/L (21-32) Anion Gap 7 mmol/L (5-15) Blood Urea Nitrogen 20 mg/dL (7-18) H Creatinine 1.3 MG/DL (0.55-1.30) Estimat Glomerular Filtration Rate 38.6 mL/min (>60) Glucose Level 98 MG/DL (74-106) Calcium Level 9.2 MG/DL (8.5-10.1) Magnesium Level 2.6 MG/DL (1.8-2.4) H Total Bilirubin 1.2 MG/DL (0.2-1.0) H Direct Bilirubin 0.2 MG/DL (0.0-0.3) Aspartate Amino Transf (AST/SGOT) 19 U/L (15-37) Alanine Aminotransferase (ALT/SGPT) 14 U/L (12-78) Alkaline Phosphatase 73 U/L (46-116) Pro-B-Type Natriuretic Peptide 169 pg/mL (0-125) H Total Protein 7.4 G/DL (6.4-8.2) Albumin 3.6 G/DL (3.4-5.0) Globulin 3.8 g/dL Albumin/Globulin Ratio 0.9 (1.0-2.7) L Microbiology Date/Time Source Procedure Growth Status 08/13/20 17:15 Urine,Clean Catch Urine Culture - Final Mixed Urogenital Contaminants Complete Assessment/Plan Assessment/Plan Hypertensive urgency resolved Hypertensive heart and renal disease - persistent BP spikes likely related to agitation. Dementia with agitation Chronic diastolic CHF Sinus bradycardia resolved Maintain current cardiovasc meds - prn therapy for BP spikes Psych rx DC planning - consider [facility] Hayden Denis MD Aug 16, 2020 01:33
[2020-08-16 03:52] VITALS: BP 150/81
--- NOTE | 2020-08-16 07:12 | NUR ---
NURSE HAND-OFF REPORT: Important Events on Shift:up all night, walking around & did not sleep but calm. Patient Status: stable Diet: cardiac mechanical soft chopped Pending Orders: Venous duplex refused by pt x 2 Pending Results/Labs: Pending MD notification: Latest Vital Signs: Temperature 97.9 , Pulse 68 , B/P 150 /81 , Respiratory Rate 16 , O2 SAT 96 , Room Air, O2 Flow Rate . Vital Sign Comment: EKG Rhythm: Sinus Rhythm Rhythm change?: N MD Notified?: N - MD Response: Latest Hodges Fall Score: 35 Fall Risk: Medium Risk Safety Measures: Call light Within Reach, Bed Alarm Zone 2, Side Rails Side Rails x2, Bed position Low and Locked. Fall Precautions: Yellow Socks Report given to Lynette Yoder RN.
[2020-08-16 08:00] VITALS: BP 164/85
[2020-08-16] MEDS: Docusate Sod/Senna tab ORAL SCH ×2 (08:51→17:29)
[2020-08-16] MEDS: Metoprolol Tartrate 12.5mg TAB ORAL SCH ×2 (08:52→20:31)
--- NOTE | 2020-08-16 11:23 | General Progress Note ---
Subjective Allergies: Coded Allergies: PENICILLINS (Unverified Allergy, Unknown, 12/06/19) Uncoded Allergies: PENECILLIN (Allergy, Unknown, 04/14/20) Subjective care noted alert agitated Objective Last 24 Hour Vital Signs Date Time Temp Pulse Resp B/P (MAP) Pulse Ox O2 Delivery O2 Flow Rate FiO2 08/16/20 09:00 Room Air 08/16/20 08:52 75 164/85 08/16/20 08:00 73 08/16/20 04:00 68 08/16/20 03:52 97.9 67 16 150/81 (104) 96 08/16/20 00:00 97.9 79 16 158/76 (103) 96 08/16/20 00:00 90 08/15/20 21:00 Room Air 08/15/20 20:35 78 163/79 08/15/20 20:00 92 08/15/20 20:00 98.3 78 16 163/79 (107) 97 08/15/20 16:00 72 08/15/20 16:00 98.5 71 19 154/72 (99) 98 08/15/20 12:00 60 08/15/20 12:00 98.6 65 18 155/74 (101) 97 Intake and Output 08/15/20 08/16/20 19:00 07:00 Intake Total 400 ml 150 ml Balance 400 ml 150 ml Intake Oral 400 ml 150 ml # Voids 2 3 Height (Feet): 4 Height (Inches): 9.00 Weight (Pounds): 98 Objective WDWN NAD clear breath sounds bilaterally without rhonchi or wheeze [id number] without MRG NABS nontender no HSM no CCE nonfocal frail Assessment/Plan Assessment/Plan: Impression: Hypertensive urgency Prior h/o Hypertension HHD - troponin NR Upper lobe bronchiectasis Dementia Generalbody and abdominal pain Plan: PRN clonidine/hydralazine BPmeds Analgesia Monitor labs PPX PT eval Cardiology Clearance anxiolytics and psych to see dc planning impression, plan, and exam edited and reviewed in detail care discussed with Justin Lopez MD Aug 16, 2020 11:23
[2020-08-16 12:00] VITALS: BP 161/84
--- NOTE | 2020-08-16 14:48 | NUR ---
CASE MANAGEMENT: INITIAL REVIEW 08/13/2020 89 YO F PRESENTED TO ED FROM HOME CC: GEN BODY PAIN PMHx: HTN. DEMENTIA SI:HYPERTENSIVE URGENCY VS: T 98.1 HR 98 RR 22 B/P 211/105 SATS 95% ON RA LABS: BUN 21 GLU 113 IS: MORPHINE IV X1 NS BOLUS X1 HYDRALAZINE IV X1 PATIENT ADMITTED TO TELE 08/13/2020 @ 0121 DCP: HOME CONCURRENT REVIEW FOR 08/16/2020 SI:HYPERTENSIVE URGENCY VS: T 97.9 HR 77 RR 18 B/P 161/84 SATS 97% ON RA LABS: NO LABS TODAY IS:LOPRESSOR PO Q12H TELEMETRY DCP: HOME
--- NOTE | 2020-08-16 19:19 | NUR ---
NURSE HAND-OFF REPORT: Important Events on Shift:[] Patient Status: [] Diet: [] Pending Orders: [] Pending Results/Labs:[] Pending MD notification:[] Latest Vital Signs: Temperature 97.9 , Pulse 81 , B/P 161 /84 , Respiratory Rate 18 , O2 SAT 97 , Room Air, O2 Flow Rate . Vital Sign Comment: [] EKG Rhythm: Sinus Rhythm Rhythm change?: N MD Notified?: N - MD Response: Latest Hodges Fall Score: 35 Fall Risk: Medium Risk Safety Measures: Call light Within Reach, Bed Alarm Zone 2, Side Rails Side Rails x2, Bed position Low and Locked. Fall Precautions: Yellow Socks Report given to [beau gómez].
--- NOTE | 2020-08-16 19:54 | NUR ---
NURSE NOTES: Patient in room, awake, stable. Slovak speaking. 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 On room air with no signs of distress or SOB. Patient motioning pain in the RUQ. Will administer pain medication as ordered. IV intact and patent. Bed locked and in lowest position. Patient can ambulate w/steady gate. Will continue plan of care.
[2020-08-16 20:00] VITALS: BP 192/105
--- NOTE | 2020-08-16 22:18 | Cardiology Progress Note ---
Subjective DATE OF SERVICE: Aug 16, 2020 Episodes of agitation and combative behavior decreased. BP parameters remain significantly elevated at times. Monitor: sinus Objective Last 24 Hour Vital Signs Date Time Temp Pulse Resp B/P (MAP) Pulse Ox O2 Delivery O2 Flow Rate FiO2 08/16/20 20:34 Room Air 08/16/20 20:31 84 192/106 08/16/20 20:00 98.4 84 16 192/105 (134) 96 08/16/20 19:05 89 08/16/20 18:33 81 08/16/20 12:00 97.9 72 18 161/84 (109) 97 08/16/20 12:00 77 08/16/20 09:00 Room Air 08/16/20 08:52 75 164/85 08/16/20 08:00 73 08/16/20 08:00 97.3 75 18 164/85 (111) 08/16/20 04:00 68 08/16/20 03:52 97.9 67 16 150/81 (104) 96 08/16/20 00:00 97.9 79 16 158/76 (103) 96 08/16/20 00:00 90 HEENT: normal ENT inspection RHYTHM: NSR, SB LUNGS: lungs clear bilaterally CARDIAC: normal rate, regular rhythm, normal S1 and S2, gallop/S4 ABDOMEN: normal bowel sounds, non tender, soft, no mass EXTREMITIES: normal range of motion, non-tender, No edema, other - mod cognitive deficit Assessment/Plan Assessment/Plan Hypertensive urgency recurring Hypertensive heart and renal disease - persistent BP spikes likely related to agitation. Dementia with agitation Chronic diastolic CHF Sinus bradycardia resolved Advance current cardiovasc meds - prn therapy for BP spikes Psych rx DC planning - consider [facility] Hayden Matthews MD Aug 16, 2020 22:18
--- NOTE | 2020-08-16 22:48 | NUR ---
NURSE NOTES: Scab with redness and scant white drainage noted on the L big toe. Does not appear to be pressure related. Patient states it's very painful. Cleansed with NS and covered. Wound eval order placed, per protocol. Will continue to monitor.
[2020-08-17] VITALS (7 sets, daily range): BP systolic 138–180; BP diastolic 77–90
--- NOTE | 2020-08-17 06:20 | NUR ---
NURSE HAND-OFF REPORT: Important Events on Shift: No acute events; L big toe wound eval ordered, HTN Patient Status: Stable Diet: Cardiac mech soft chopped Pending Orders: WC eval Pending Results/Labs: No AM labs Pending MD notification: N/A Latest Vital Signs: Temperature 97.4 , Pulse 76 , B/P 156 /81 , Respiratory Rate 18 , O2 SAT 98 , Room Air, O2 Flow Rate . Vital Sign Comment: EKG Rhythm: Sinus Rhythm Rhythm change?: N Notified?: N - MD Response: Latest Hodges Fall Score: 35 Fall Risk: Medium Risk Safety Measures: Call light Within Reach, Bed Alarm Zone 2, Side Rails Side Rails x2, Bed position Low and Locked. Fall Precautions: Yellow Socks Addendum: 08/17/20 at 0729 by VICKIE BRUNER RN Report given to SHUBHAM Wright
--- NOTE | 2020-08-17 07:22 | General Progress Note ---
Subjective Allergies: Coded Allergies: PENICILLINS (Unverified Allergy, Unknown, 12/06/19) Uncoded Allergies: PENECILLIN (Allergy, Unknown, 04/14/20) Subjective care noted alert agitated Objective Last 24 Hour Vital Signs Date Time Temp Pulse Resp B/P (MAP) Pulse Ox O2 Delivery O2 Flow Rate FiO2 08/17/20 03:54 97.4 76 18 156/81 (106) 98 08/17/20 03:31 75 08/17/20 00:00 98.0 84 16 138/88 (105) 97 08/16/20 23:29 81 08/16/20 20:34 Room Air 08/16/20 20:31 84 192/106 08/16/20 20:00 98.4 84 16 192/105 (134) 96 08/16/20 19:05 89 08/16/20 18:33 81 08/16/20 12:00 97.9 72 18 161/84 (109) 97 08/16/20 12:00 77 08/16/20 09:00 Room Air 08/16/20 08:52 75 164/85 08/16/20 08:00 73 08/16/20 08:00 97.3 75 18 164/85 (111) Intake and Output 08/16/20 08/17/20 19:00 07:00 Intake Total 300 ml Balance 300 ml Intake Oral 300 ml # Voids 4 1 Height (Feet): 4 Height (Inches): 9.00 Weight (Pounds): 98 Objective WDWN NAD clear breath sounds bilaterally without rhonchi or wheeze [id number] without MRG NABS nontender no HSM no CCE nonfocal frail Assessment/Plan Assessment/Plan: Impression: Hypertensive urgency Prior h/o Hypertension HHD - troponin NR Upper lobe bronchiectasis Dementia Generalbody and abdominal pain Plan: PRN clonidine/hydralazine BPmeds Analgesia Monitor labs PPX PT eval Cardiology Clearance psych follow up dc planning impression, plan, and exam edited and reviewed in detail care discussed with Justin Lopez MD Aug 17, 2020 07:22
[2020-08-17] MEDS: Docusate Sod/Senna tab ORAL SCH ×2 (08:57→18:00)
[2020-08-17] MEDS: Metoprolol Tartrate 12.5mg TAB ORAL SCH ×2 (08:57→20:17)
--- NOTE | 2020-08-17 13:25 | NUR ---
INSURANCE CLINICALS FAXED TO [facility] - CM: Elio henson [phone] [facility] - [phone]
--- NOTE | 2020-08-17 13:30 | NUR ---
Remains with elevated blood pressure, medicated as ordered with Clonidine. will continue to monitor.
--- NOTE | 2020-08-17 15:50 | NUR ---
anxious, wants to go home, spoke with daughter, explained to daughter that there is no orders to d/c home as of yet because, her B/P is still very high and she's still being monitored. medicated with PRN meds. for HTN.
--- NOTE | 2020-08-17 16:45 | NUR ---
NURSE NOTES:WOUND CARE:Pt noted to have infected nail matrix L 1st metatarsal. At base of nail matrix is erythematous with are of purulent filled blister. Pt complained toe is painful when minimally palpated. Recommended to Primary nurse to follow-up with PCP if for further evaluation if indicated. Tx.Plan: Apply Betadine to L 1st metatarsal daily and prn. Follow-up with PCP for further orders.
--- NOTE | 2020-08-17 19:50 | NUR ---
NURSE NOTES: Patient received from SHUBHAM Wright. Patient is awake, alert and oriented x 3. Patient is noted to be able to ambulate and walks outside the room. Patient is on room air with no signs of acute respiratory distress noted. Patient is very talkative, no complaints as of the moment. Patient has a left 20 gauge on her forearm, saline locked. Bed is in the lowest position and locked, call light within reach. Will continue to monitor.
--- NOTE | 2020-08-17 19:56 | NUR ---
NURSE HAND-OFF REPORT: Important Events on Shift:[]B/P remains high. Medicated with Clonidine x1. effective Patient Status: []Stable Diet: []cardiac, mech. soft Pending Orders: [] Pending Results/Labs:[] Pending MD notification:[] Latest Vital Signs: Temperature 99.0 , Pulse 83 , B/P 138 /77 , Respiratory Rate 18 , O2 SAT 95 , Room Air, O2 Flow Rate . Vital Sign Comment: [] EKG Rhythm: Sinus Rhythm Rhythm change?: N MD Notified?: N - MD Response: Latest Hodges Fall Score: 35 Fall Risk: Medium Risk Safety Measures: Call light Within Reach, Bed Alarm Zone 2, Side Rails Side Rails x2, Bed position Low and Locked. Fall Precautions: Yellow Socks Report given to [].Denia Lucas
--- NOTE | 2020-08-17 22:27 | Cardiology Progress Note ---
Subjective DATE OF SERVICE: Aug 17, 2020 Episodes of agitation and combative behavior decreased. BP parameters remain elevated at times. Monitor: sinus Objective Last 24 Hour Vital Signs Date Time Temp Pulse Resp B/P (MAP) Pulse Ox O2 Delivery O2 Flow Rate FiO2 08/17/20 20:17 65 140/81 08/17/20 20:00 75 08/17/20 20:00 96.6 65 20 140/81 (100) 98 08/17/20 16:02 83 08/17/20 16:00 99.0 78 18 138/77 (97) 95 08/17/20 13:00 158/77 (104) 08/17/20 12:00 64 08/17/20 11:52 97.7 92 20 180/90 (120) 95 08/17/20 11:42 180/90 08/17/20 09:22 Room Air 08/17/20 08:58 85 08/17/20 08:57 97.6 85 18 162/81 (108) 94 08/17/20 08:57 85 162/81 08/17/20 03:54 97.4 76 18 156/81 (106) 98 08/17/20 03:31 75 08/17/20 00:00 98.0 84 16 138/88 (105) 97 08/16/20 23:29 81 ROS: unchanged from my initial eval HEENT: normal ENT inspection RHYTHM: NSR, SB LUNGS: lungs clear bilaterally CARDIAC: normal rate, regular rhythm, normal S1 and S2, gallop/S4 ABDOMEN: normal bowel sounds, non tender, soft, no mass EXTREMITIES: normal range of motion, non-tender, No edema, other - mod cogn itive deficit Assessment/Plan Assessment/Plan Hypertensive urgency recurring Hypertensive heart and renal disease - persistent BP spikes likely related to agitation. Dementia with agitation Chronic diastolic CHF Sinus bradycardia resolved Advance current cardiovasc meds - add amlodipine with prn therapy for BP spikes Continue beta mariah Psych rx Hayden Matthews MD Aug 17, 2020 22:27
[2020-08-18] VITALS: BP 154/81
[2020-08-18 04:00] VITALS: BP 159/75
--- NOTE | 2020-08-18 07:30 | NUR ---
NURSE NOTES: Received pt from SHUBHAM Loza, pt is awake and sitting on the chair, pt is in RA, no SOB or acute respiratory distress noted. pt is on continues heart monitoring. pt has intact iv access LAC 20G SL. all needs attended, bed is locked and is in the lowest position, call light within easy reach. will continue to monitor.
--- NOTE | 2020-08-18 07:40 | NUR ---
NURSE HAND-OFF REPORT: Important Events on Shift:[] Patient Status: [Stable] Diet: [Cardiac diet, soft easy chew] Pending Orders: [] Pending Results/Labs:[] Pending MD notification:[] Latest Vital Signs: Temperature 97.7 , Pulse 54 , B/P 159 /75 , Respiratory Rate 18 , O2 SAT 97 , Room Air, O2 Flow Rate . Vital Sign Comment: [] EKG Rhythm: Sinus Bradycardia Rhythm change?: Y MD Notified?: N - MD Response: Latest Hodges Fall Score: 35 Fall Risk: Medium Risk Safety Measures: Call light Within Reach, Bed Alarm Zone 2, Side Rails Side Rails x2, Bed position Low and Locked. Fall Precautions: Yellow Socks Report given to [SHUBHAM Curiel].
[2020-08-18 08:00] VITALS: BP 153/74
[2020-08-18] MEDS: Docusate Sod/Senna tab ORAL SCH (08:30)
[2020-08-18] MEDS: Metoprolol Tartrate 12.5mg TAB ORAL SCH (08:30)
--- NOTE | 2020-08-18 09:40 | General Progress Note ---
Subjective Allergies: Coded Allergies: PENICILLINS (Unverified Allergy, Unknown, 12/06/19) Uncoded Allergies: PENECILLIN (Allergy, Unknown, 04/14/20) Subjective care noted alert agitated Objective Last 24 Hour Vital Signs Date Time Temp Pulse Resp B/P (MAP) Pulse Ox O2 Delivery O2 Flow Rate FiO2 08/18/20 08:30 72 153/74 08/18/20 08:30 72 153/74 08/18/20 08:00 98.1 72 19 153/74 (100) 97 08/18/20 07:56 65 08/18/20 04:00 97.7 62 18 159/75 (103) 97 08/18/20 04:00 54 08/18/20 00:00 61 08/18/20 00:00 97.1 61 20 154/81 (105) 98 08/17/20 21:00 Room Air 08/17/20 20:17 65 140/81 08/17/20 20:00 75 08/17/20 20:00 96.6 65 20 140/81 (100) 98 08/17/20 16:02 83 08/17/20 16:00 99.0 78 18 138/77 (97) 95 08/17/20 13:00 158/77 (104) 08/17/20 12:00 64 08/17/20 11:52 97.7 92 20 180/90 (120) 95 08/17/20 11:42 180/90 Intake and Output 08/17/20 08/18/20 19:00 07:00 Intake Total 240 ml 520 ml Balance 240 ml 520 ml Intake Oral 240 ml 520 ml # Voids 3 7 # Bowel Movements 1 Height (Feet): 4 Height (Inches): 9.00 Weight (Pounds): 98 Objective WDWN NAD clear breath sounds bilaterally without rhonchi or wheeze [id number] without MRG NABS nontender no HSM no CCE nonfocal frail Assessment/Plan Assessment/Plan: Impression: Hypertensive urgency Prior h/o Hypertension HHD - troponin NR Upper lobe bronchiectasis Dementia Generalbody and abdominal pain Plan: PRN clonidine/hydralazine BPmeds Analgesia Monitor labs PPX PT eval Cardiology noted psych follow up noted dc planning if able impression, plan, and exam edited and reviewed in detail care discussed with Justin Lopez MD Aug 18, 2020 09:40
[2020-08-18 11:51] VITALS: BP 153/70
--- NOTE | 2020-08-18 12:27 | NUR ---
INSURANCE CLINICALS FAXED TO [facility] - CM: Elio henson [address] [facility] - [phone]
[2020-08-18] MEDS ORDERED: HYDROmorphone 1mg/ml Carpuject IVP PRN (13:00)
--- NOTE | 2020-08-18 14:09 | NUR ---
NURSE NOTES: pt has discharge order, Dr Zhou is aware about discharge meds and given pt's pharmacy ph [phone] to MD and Dr Barker will send prescription to the pharmacy directly, Dr Bradley is aware and Dr Bradley ordered to D/C pt with home meds, noted and carried out. pt's daughter Taylor Willis is aware about D/C and given all discharge instructions via phone and Taylor verbally confirmed to understand all. Taylor is aware about see primary MD in one week and about meds Dr Zhou will send to pharmacy and also is aware to F/U with primary physician about scabs on the R toe. Taylor COMPLETELY UNDERSTAND AND SHE WILL F/U. Daughter will be here to pick pt up 1630.
[2020-08-18 16:24] VITALS: BP 155/76
--- NOTE | 2020-08-18 16:28 | NUR ---
NURSE NOTES: pt is stable, V/S stable, all belongings are with pt, all instructions given to daughter Taylor again in person and she verbally confirmed to understand all. endorsed Taylor about given clonidine to pt and monitor BP. skin is intact. iv access D/C, Pt is off from heart monitoring. pt left hospital with accompany daughter.
[2020-08-18] MEDS ORDERED: Docusate Sod/Senna tab ORAL SCH (18:00)
--- NOTE | 2020-08-18 18:42 | Psychiatric Progress Note ---
Psychiatry Progress Note Psychiatry Progress Note Neurological/Psychiatric: Reports: anxiety, depressed, emotional problems Allergies: Coded Allergies: PENICILLINS (Unverified Allergy, Unknown, 12/06/19) Uncoded Allergies: PENECILLIN (Allergy, Unknown, 04/14/20) Objective Data Height (Feet): 4 Height (Inches): 9.00 Weight (Pounds): 98 Additional Comments: Awake and disoriented to date. Mood is anxious. Affect is blunted. Thought process is concrete. Thought content, no suicidal or homicidal ideation. Cognition is impaired. Insight and judgment is impaired. Assessment/Plan Assessment/Plan: ASSESSMENT: [place] I Dementia. Anxiety disorder. Psychotic disorder. [place] II Deferred. [place] III As above. [place] IV Low. [place] V 20. PLAN: 1. We will start the patient on Seroquel p.r.n. 2. Provide the patient with reality orientation and supportive therapy. Sanjay Zhou MD Aug 18, 2020 18:42
--- NOTE | 2020-08-18 18:43 | Psychiatric Progress Note ---
Psychiatry Progress Note Psychiatry Progress Note Subjective 08/16/20 Neurological/Psychiatric: Reports: anxiety, depressed, emotional problems Allergies: Coded Allergies: PENICILLINS (Unverified Allergy, Unknown, 12/06/19) Uncoded Allergies: PENECILLIN (Allergy, Unknown, 04/14/20) Objective Data Height (Feet): 4 Height (Inches): 9.00 Weight (Pounds): 98 General Appearance: WD/WN, alert, severe distress Appearance: well groomed Behavior Mannerisms: poor eye contact Mental Status Exam - Affect: constricted Speech: clear Mental Status Exam - Thought P: tangential, confusion Perceptual Disturbances: auditory Additional Comments: Awake and disoriented to date. Mood is anxious. Affect is blunted. Thought process is concrete. Thought content, no suicidal or homicidal ideation. Cognition is impaired. Insight and judgment is impaired. Assessment/Plan [place] I: ASSESSMENT: [place] I Dementia. Anxiety disorder. Psychotic disorder. [place] II Deferred. [place] III As above. [place] IV Low. [place] V 20. PLAN: 1. We will start the patient on Seroquel p.r.n. and . 2. Provide the patient with reality orientation and supportive therapy. Status Narrative ASSESSMENT: [place] I Dementia. Anxiety disorder. Psychotic disorder. [place] II Deferred. [place] III As above. [place] IV Low. [place] V 20. PLAN: 1. We will start the patient on Seroquel p.r.n. and . 2. Provide the patient with reality orientation and supportive therapy. Assessment/Plan: ASSESSMENT: [place] I Dementia. Anxiety disorder. Psychotic disorder. [place] II Deferred. [place] III As above. [place] IV Low. [place] V 20. PLAN: 1. We will start the patient on Seroquel p.r.n. and . 2. Provide the patient with reality orientation and supportive therapy. Sanjay Zhou MD Aug 18, 2020 18:43
--- NOTE | 2020-08-18 18:44 | Psychiatric Progress Note ---
Psychiatry Progress Note Psychiatry Progress Note Subjective 08/17/20 Neurological/Psychiatric: Reports: anxiety, emotional problems Allergies: Coded Allergies: PENICILLINS (Unverified Allergy, Unknown, 12/06/19) Uncoded Allergies: PENECILLIN (Allergy, Unknown, 04/14/20) Objective Data Height (Feet): 4 Height (Inches): 9.00 Weight (Pounds): 98 General Appearance: WD/WN, alert, severe distress, agitated Appearance: well groomed Behavior Mannerisms: poor eye contact Mental Status Exam - Affect: constricted Speech: clear Mental Status Exam - Thought P: tangential, confusion Perceptual Disturbances: auditory Additional Comments: Awake and disoriented to date. Mood is anxious. Affect is blunted. Thought process is concrete. Thought content, no suicidal or homicidal ideation. Cognition is impaired. Insight and judgment is impaired. Assessment/Plan [place] I: ASSESSMENT: [place] I Dementia. Anxiety disorder. Psychotic disorder. [place] II Deferred. [place] III As above. [place] IV Low. [place] V 20. PLAN: 1. We will start the patient on Seroquel p.r.n. and . 2. Provide the patient with reality orientation and supportive therapy. Status Narrative ASSESSMENT: [place] I Dementia. Anxiety disorder. Psychotic disorder. [place] II Deferred. [place] III As above. [place] IV Low. [place] V 20. PLAN: 1. We will start the patient on Seroquel p.r.n. and . 2. Provide the patient with reality orientation and supportive therapy. Assessment/Plan: ASSESSMENT: [place] I Dementia. Anxiety disorder. Psychotic disorder. [place] II Deferred. [place] III As above. [place] IV Low. [place] V 20. PLAN: 1. We will start the patient on Seroquel p.r.n. and . 2. Provide the patient with reality orientation and supportive therapy. Sanjay Zhou MD Aug 18, 2020 18:44
--- NOTE | 2020-08-19 12:20 | Discharge Summary ---
Discharge Summary Discharge Summary _ Date of admission: 08/13/2020 Date of discharge: 08/18/[address] Bradley History of Present Illness and Brief Hospital Course Mr. Terry is an 89-year-old female with past medical history of hypertension and dementia who presented to the ED for evaluation of diffuse pain in the abdomen x2 weeks. Her blood pressure was found to be markedly elevated. CT of chest was negative for pulmonary embolism or any other acute abnormality. CT of abdomen and pelvis was negative for acute abnormality. A prominent colonic stool was demonstrated as well. Patient was admitted to the hospital given her hypertensive urgency. Patient was noted to have history of hypertensive urgency. Patient's antihypertensives were adjusted accordingly. Her blood pressures eventually returned to baseline. It was likely that her agitation secondary to dementia was causing spikes in blood pressure. She was also seen by a psychiatrist who put her on Seroquel. Throughout her hospitalization, patient's blood pressure medications were adjusted. Patient was medically stable for discharge and was discharged home on 08/18/2020. Consultants: Cardiology Dr. Matthews Psychiatry Dr. Zhou Discharge Condition Improved and stable Final diagnoses Hypertensive urgency Dementia with agitation Chronic diastolic CHF Sinus bradycardia Upper lobe bronchiectasis Dementia Anxiety disorder I have been assigned to dictate discharge summary for this account. I was not involved in the patient's management Lino Damon Aug 19, 2020 12:20
--- NOTE | 2020-08-19 17:23 | Cardiology Progress Note ---
Subjective DATE OF SERVICE: Aug 18, 2020 Now cooperative with care. BP parameters improved, still suboptimal in 140-155 systolic range though. Monitor: sinus Objective Vitals reviewed ROS: unchanged from my initial eval HEENT: normal ENT inspection RHYTHM: NSR, SB LUNGS: lungs clear bilaterally CARDIAC: normal rate, regular rhythm, normal S1 and S2, gallop/S4 ABDOMEN: normal bowel sounds, non tender, soft, no mass EXTREMITIES: normal range of motion, non-tender, No edema, other - mod cognitive deficit Assessment/Plan Assessment/Plan Hypertensive urgency resolved Hypertensive heart and renal disease - slowly improved BP control. Dementia with agitation Chronic diastolic CHF Sinus bradycardia resolved Continue current cardiovasc meds - advance amlodipine at SNF if BP parameters remain elevated. Continue prn therapy for BP spikes Hayden Matthews MD Aug 19, 2020 17:23
== END 2020-08-18 16:29 | disposition home or self-care (01) | DRG 305 ==
LOC: EMR 00:22 → 2E 01:21 → EDBEDREQ 03:34
DX: I16.0 Hypertensive urgency (principal); I50.32 Chronic diastolic (congestive) heart failure; F03.91 Unspecified dementia, unspecified severity, with behavioral disturbance; J47.9 Bronchiectasis, uncomplicated; I13.10 Hypertensive heart and chronic kidney disease without heart failure, with stage 1 through stage 4 chronic kidney disease, or unspecified chronic kidney disease; N18.9 Chronic kidney disease, unspecified; M19.012 Primary osteoarthritis, left shoulder; M19.011 Primary osteoarthritis, right shoulder; R00.1 Bradycardia, unspecified; F41.9 Anxiety disorder, unspecified; F29 Unspecified psychosis not due to a substance or known physiological condition
CPT/HCPCS: 36415; 71275; 74175; 80048; 80053; 81001; 81003; 82248; 83690; 83735; 83880; 84443; 84484; 85025; 87086; 93005; 96374; 96375; 96376; 99285; C9399; J2405